=== PATIENT | male | born 1940 | race Caucasian/White ===

== ENCOUNTER 2017-11-29 19:22 | Inpatient (IN) | payer MEDICARE, OTHER ==
[~2017-11-29] VITALS: Ht 182.9 cm; Wt 104.7 kg
[2017-11-29 19:55] LABS: BASOPHILS # (AUTO) 0.1 X10'3 (0-0.2); EOSINOPHILS # (AUTO) 0.8 X10'3 (0-0.9); EOSINOPHILS % (AUTO) 9.9 % (0-6); HEMATOCRIT 36.4 % (42.0-52.0); HEMOGLOBIN 12.3 g/dl (14.0-17.9); LYMPHOCYTES # (AUTO) 1.8 X10'3 (1.1-4.8); LYMPHOCYTES % (AUTO) 21.9 % (21-51); MEAN CORPUSCULAR HEMOGLOBIN 29.2 PG (27.0-31.0); MEAN CORPUSCULAR HGB CONC 33.7 % (33.0-36.5); MEAN CORPUSCULAR VOLUME 86.8 FL (78-98); MEAN PLATELET VOLUME 9.7 FL (7.4-10.4); MONOCYTES # (AUTO) 0.6 X10'3 (0-0.9); MONOCYTES % (AUTO) 6.9 % (2-12); NEUTROPHILS % (AUTO) 60.3 % (42-75); PLATELET COUNT 249 X10'3 (140-440); RED BLOOD COUNT 4.19 X10'6 (4.70-6.10); WHITE BLOOD COUNT 8.3 X10'3 (4.5-11.0)
[2017-11-29 20:00] LABS: PARTIAL THROMBOPLASTIN TIME 27 SECONDS (22-32); PROTHROMBIN TIME 10.6 SECONDS (9.0-12.0)
[2017-11-29 20:15] LABS: ALANINE AMINOTRANSFERASE 31 U/L (12-78); ALBUMIN 3.6 G/DL (3.4-5.0); ALBUMIN/GLOBULIN RATIO 0.8 (1.1-1.5); ALKALINE PHOSPHATASE 84 IU/L (46-116); ANION GAP 9 (8-16); ASPARTATE AMINO TRANSFERASE 21 U/L (10-37); BILIRUBIN,TOTAL 0.5 MG/DL (0.1-1.0); BLOOD UREA NITROGEN 34 MG/DL (7-18); BUN/CREATININE RATIO 26.2 (5.4-32.0); CALCIUM 9.4 MG/DL (8.5-10.1); CHLORIDE 106 MMOL/L (99-107); GLUCOSE 141 MG/DL (70-104); POTASSIUM 4.8 MMOL/L (3.5-5.1); SODIUM 140 MMOL/L (135-145); TOTAL CARBON DIOXIDE 24.9 MMOL/L (24-32); TOTAL PROTEIN 8.1 G/DL (6.4-8.2); eGFR 54 ML/MIN
[2017-11-29] MEDS ORDERED: morphine 2 MG/ML inj. syringe IV ONE (20:40)
[2017-11-29] MEDS ORDERED: aspirin 325mg tablet PO ONE (21:25)
[2017-11-29] MEDS ORDERED: metoprolol tartrate 1mg/ml inj IV ONE (21:25)
[2017-11-29] MEDS ORDERED: hydrALAZINE 20mg/ml inj. IV ONE (21:45)
[2017-11-29] MEDS ORDERED: ondansetron/PF 4mg/2ml inj IV PRN (21:50)
[2017-11-29] MEDS ORDERED: magnesium hydroxide 30ml (MOM) UD suspension PO PRN (21:50)
[2017-11-29] MEDS ORDERED: mag hydrox/Alum hydrox/simeth 30ml oral suspension PO PRN (21:50)
[2017-11-29] MEDS: nitroGLYCERIN 0.4mg SUBLingual tab SL PRN (22:06)
[2017-11-29] MEDS ORDERED: PRED15SO EACHEYE (22:28)
[2017-11-29] MEDS ORDERED: BRIM5DRO EACHEYE (22:28)
[2017-11-29] MEDS ORDERED: ATOR80TA PO (22:28)
[2017-11-29] MEDS ORDERED: LISI-600 PO (22:28)
[2017-11-29] MEDS ORDERED: ASPI-1265 PO (22:28)
[2017-11-29] MEDS ORDERED: KETO5DRO39 EACHEYE (22:28)
[2017-11-29] MEDS ORDERED: METO-467 PO (22:30)
[2017-11-29 23:45] VITALS: BP 158/63
[2017-11-29] MEDS ORDERED: heparin 10,000 units/1 ML INJ IV ONE (23:50)
[2017-11-29] MEDS ORDERED: heparin 10,000 units/1 ML INJ IV PRN (23:50)
[2017-11-30] VITALS (19 sets, daily range): BP systolic 134–187; BP diastolic 43–99
[2017-11-30] MEDS ORDERED: heparin, porcine 5000 units/ml vial SQ SCH
[2017-11-30] MEDS: nitroGLYCERIN 0.4mg SUBLingual tab SL PRN (00:09)
[2017-11-30 02:17] LABS: BASOPHILS # (AUTO) 0.1 X10'3 (0-0.2); BASOPHILS % (AUTO) 0.6 % (0-1); EOSINOPHILS # (AUTO) 0.3 X10'3 (0-0.9); EOSINOPHILS % (AUTO) 3.5 % (0-6); HEMATOCRIT 33.4 % (42.0-52.0); HEMOGLOBIN 11.7 g/dl (14.0-17.9); LYMPHOCYTES # (AUTO) 1.6 X10'3 (1.1-4.8); LYMPHOCYTES % (AUTO) 16.1 % (21-51); MEAN CORPUSCULAR HEMOGLOBIN 29.6 PG (27.0-31.0); MEAN CORPUSCULAR VOLUME 84.5 FL (78-98); MEAN PLATELET VOLUME 9.8 FL (7.4-10.4); MONOCYTES # (AUTO) 0.5 X10'3 (0-0.9); MONOCYTES % (AUTO) 4.7 % (2-12); NEUTROPHILS # (AUTO) 7.3 X10'3 (1.8-7.7); NEUTROPHILS % (AUTO) 75.1 % (42-75); PLATELET COUNT 247 X10'3 (140-440); RED BLOOD COUNT 3.95 X10'6 (4.70-6.10); RED CELL DISTRIBUTION WIDTH 11.9 % (11.5-14.5); WHITE BLOOD COUNT 9.8 X10'3 (4.5-11.0)
[2017-11-30 02:32] LABS: ALANINE AMINOTRANSFERASE 25 U/L (12-78); ALBUMIN 3.1 G/DL (3.4-5.0); ALBUMIN/GLOBULIN RATIO 0.7 (1.1-1.5); ALKALINE PHOSPHATASE 82 IU/L (46-116); ANION GAP 7 (8-16); ASPARTATE AMINO TRANSFERASE 24 U/L (10-37); BILIRUBIN,TOTAL 0.5 MG/DL (0.1-1.0); BLOOD UREA NITROGEN 34 MG/DL (7-18); BUN/CREATININE RATIO 30.9 (5.4-32.0); CALCIUM 9.2 MG/DL (8.5-10.1); CHLORIDE 106 MMOL/L (99-107); GLUCOSE 117 MG/DL (70-104); POTASSIUM 4.5 MMOL/L (3.5-5.1); SODIUM 139 MMOL/L (135-145); TOTAL CARBON DIOXIDE 26.2 MMOL/L (24-32); TOTAL PROTEIN 7.3 G/DL (6.4-8.2); eGFR 65 ML/MIN
[2017-11-30] MEDS: metoprolol tartrate 25mg tablet PO SCH ×2 (07:13→20:00)
[2017-11-30 07:28] LABS: PROTHROMBIN TIME 10.7 SECONDS (9.0-12.0)
[2017-11-30] MEDS ORDERED: aspirin 325mg tablet, delayed-release (Ecotrin) PO SCH (08:00)
[2017-11-30] MEDS ORDERED: midazolam 2 mg/2 ml injection ONE (09:24)
[2017-11-30] MEDS ORDERED: nitroGLYCERIN-Tridil 50MG/D5W 250 ML IV ONE (09:25)
[2017-11-30] MEDS ORDERED: heparin 1,000unit/ml 10ml vial 10 ML ONE (09:25)
[2017-11-30] MEDS ORDERED: iohexol 350MG/ML 100ml bottle IV ONE ×2 (09:25→10:39)
[2017-11-30] MEDS ORDERED: iohexol 350 MG/ML 50ML vial IV ONE (09:25)
[2017-11-30] MEDS ORDERED: LIDOcaine 1%/PF (10mg/ml) 5ml vial ONE ×2 (09:25→10:11)
[2017-11-30] MEDS ORDERED: fentaNYL/PF 50MCG/1 ML 2ML syringe ONE (09:25)
[2017-11-30] MEDS ORDERED: verapamil 2.5 mg/ml inj IV ONE (10:18)
[2017-11-30] MEDS ORDERED: iohexol 350 MG/1 ML 200ml bottle ONE (11:08)
[2017-11-30 11:28] LABS: CHOL/HDL RATIO 2.6 (0.00-4.99); CHOLESTEROL 112 MG/DL (0-200); HDL CHOLESTEROL 43 MG/DL (35-60); LDL CHOLESTEROL 68 MG/DL (50-100); TRIGLYCERIDES 45 MG/DL (20-135)
[2017-11-30] MEDS ORDERED: ticagrelor 90mg tablet ONE (12:06)
[2017-11-30] MEDS ORDERED: aspirin 81mg tab.chew PO ONE (13:05)
[2017-11-30] MEDS ORDERED: ticagrelor 90mg tablet PO ONE (13:10)
[2017-11-30] MEDS ORDERED: proCHLORperazine 10 MG/2 ml inj IV PRN (13:10)
[2017-11-30] MEDS ORDERED: OXAZEpam 15mg capsule PO PRN (13:15)
[2017-11-30] MEDS ORDERED: cyclobenzaprine 10mg tablet PO PRN (13:15)
[2017-11-30] MEDS ORDERED: HYDROcodone/acetaminophen 10/325mg tab PO PRN (13:15)
[2017-11-30] MEDS ORDERED: acetaminophen 325mg tablet PO PRN (13:15)
[2017-11-30] MEDS ORDERED: normal saline 1000ml 1,000 ML IV ONE (13:20)
[2017-11-30] MEDS: HYDROcodone/acetaminophen 10/325mg tab PO PRN ×2 (15:21→19:11)
[2017-11-30] MEDS: docusate sod 100mg capsule PO SCH (20:00)
[2017-11-30] MEDS: magnesium hydroxide 30ml (MOM) UD suspension PO SCH (21:00)
[2017-11-30] MEDS ORDERED: non-formulary drug (Atorvastatin Calcium* (Lipitor*) 1 TABLET) PO SCH (21:00)
[2017-11-30] MEDS ORDERED: metoprolol tartrate 50mg tablet PO SCH (21:00)
[2017-11-30] MEDS: ticagrelor 90mg tablet PO SCH (21:24)
[2017-11-30] MEDS ORDERED: lisinopril 10 MG tablet PO ONE (22:05)
[2017-12-01] VITALS (23 sets, daily range): BP systolic 118–177; BP diastolic 41–77
[2017-12-01 06:13] LABS: BASOPHILS % (AUTO) 0 % (0-1); EOSINOPHILS # (AUTO) 0.2 X10'3 (0-0.9); EOSINOPHILS % (AUTO) 3.3 % (0-6); HEMATOCRIT 31.5 % (42.0-52.0); HEMOGLOBIN 10.7 g/dl (14.0-17.9); LYMPHOCYTES % (AUTO) 14.4 % (21-51); MEAN CORPUSCULAR HEMOGLOBIN 29.1 PG (27.0-31.0); MEAN CORPUSCULAR HGB CONC 34.1 % (33.0-36.5); MEAN CORPUSCULAR VOLUME 85.4 FL (78-98); MEAN PLATELET VOLUME 9.5 FL (7.4-10.4); MONOCYTES # (AUTO) 0.6 X10'3 (0-0.9); MONOCYTES % (AUTO) 8.3 % (2-12); NEUTROPHILS # (AUTO) 5.2 X10'3 (1.8-7.7); PLATELET COUNT 224 X10'3 (140-440); RED BLOOD COUNT 3.69 X10'6 (4.70-6.10)
[2017-12-01 06:43] LABS: ALANINE AMINOTRANSFERASE 28 U/L (12-78); ALBUMIN/GLOBULIN RATIO 0.8 (1.1-1.5); ALKALINE PHOSPHATASE 74 IU/L (46-116); ANION GAP 11 (8-16); ASPARTATE AMINO TRANSFERASE 30 U/L (10-37); BILIRUBIN,TOTAL 0.8 MG/DL (0.1-1.0); BLOOD UREA NITROGEN 28 MG/DL (7-18); CALCIUM 8.9 MG/DL (8.5-10.1); CHLORIDE 106 MMOL/L (99-107); GLUCOSE 111 MG/DL (70-104); POTASSIUM 4.1 MMOL/L (3.5-5.1); SODIUM 140 MMOL/L (135-145); TOTAL CARBON DIOXIDE 23.1 MMOL/L (24-32); TOTAL PROTEIN 6.9 G/DL (6.4-8.2); eGFR 73 ML/MIN
[2017-12-01] MEDS: acetaminophen 325mg tablet PO PRN ×3 (06:58→19:17)
[2017-12-01] MEDS: ticagrelor 90mg tablet PO SCH ×2 (07:34→19:17)
[2017-12-01] MEDS: aspirin 81mg tablet.DR PO SCH (07:35)
[2017-12-01] MEDS: atorvastatin 20mg tablet PO SCH (07:35)
[2017-12-01] MEDS: docusate sod 100mg capsule PO SCH ×2 (07:35→19:18)
[2017-12-01] MEDS: lisinopril 20mg tablet PO SCH (07:35)
[2017-12-01] MEDS: nitroGLYCERIN-Tridil 50MG/D5W 250 ML IV PRN (07:40)
[2017-12-01] MEDS ORDERED: aspirin 325mg tablet PO SCH (08:30)
[2017-12-01] MEDS: metoprolol tartrate 25mg tablet PO SCH ×2 (08:45→19:17)
[2017-12-01] MEDS: magnesium hydroxide 30ml (MOM) UD suspension PO SCH (20:01)
[2017-12-02] VITALS (19 sets, daily range): BP systolic 113–212; BP diastolic 37–79
[2017-12-02] MEDS: nitroGLYCERIN-Tridil 50MG/D5W 250 ML IV PRN (03:23)
[2017-12-02 06:10] LABS: BASOPHILS % (AUTO) 0.4 % (0-1); EOSINOPHILS # (AUTO) 0.5 X10'3 (0-0.9); EOSINOPHILS % (AUTO) 7.8 % (0-6); HEMATOCRIT 29.4 % (42.0-52.0); HEMOGLOBIN 10.1 g/dl (14.0-17.9); LYMPHOCYTES # (AUTO) 1.1 X10'3 (1.1-4.8); LYMPHOCYTES % (AUTO) 17.4 % (21-51); MEAN CORPUSCULAR HGB CONC 34.4 % (33.0-36.5); MEAN CORPUSCULAR VOLUME 84.3 FL (78-98); MEAN PLATELET VOLUME 9.4 FL (7.4-10.4); MONOCYTES # (AUTO) 0.6 X10'3 (0-0.9); MONOCYTES % (AUTO) 9.4 % (2-12); NEUTROPHILS # (AUTO) 4.3 X10'3 (1.8-7.7); PLATELET COUNT 210 X10'3 (140-440); RED BLOOD COUNT 3.48 X10'6 (4.70-6.10); RED CELL DISTRIBUTION WIDTH 12.9 % (11.5-14.5); WHITE BLOOD COUNT 6.6 X10'3 (4.5-11.0)
[2017-12-02 06:12] LABS: ALANINE AMINOTRANSFERASE 21 U/L (12-78); ALBUMIN 2.8 G/DL (3.4-5.0); ALBUMIN/GLOBULIN RATIO 0.7 (1.1-1.5); ALKALINE PHOSPHATASE 69 IU/L (46-116); ANION GAP 10 (8-16); ASPARTATE AMINO TRANSFERASE 24 U/L (10-37); BILIRUBIN,TOTAL 0.8 MG/DL (0.1-1.0); BLOOD UREA NITROGEN 22 MG/DL (7-18); CHLORIDE 108 MMOL/L (99-107); GLUCOSE 102 MG/DL (70-104); POTASSIUM 3.9 MMOL/L (3.5-5.1); SODIUM 142 MMOL/L (135-145); TOTAL CARBON DIOXIDE 24.5 MMOL/L (24-32); TOTAL PROTEIN 6.7 G/DL (6.4-8.2); eGFR 73 ML/MIN
[2017-12-02] MEDS: ticagrelor 90mg tablet PO SCH ×2 (08:10→19:55)
[2017-12-02] MEDS: atorvastatin 20mg tablet PO SCH (08:10)
[2017-12-02] MEDS: docusate sod 100mg capsule PO SCH ×2 (08:11→19:54)
[2017-12-02] MEDS: metoprolol tartrate 25mg tablet PO SCH ×2 (08:11→19:55)
[2017-12-02] MEDS: lisinopril 20mg tablet PO SCH (08:11)
[2017-12-02] MEDS: aspirin 81mg tablet.DR PO SCH (08:11)
[2017-12-02] MEDS ORDERED: nitroGLYCERIN 0.4mg SUBLingual tab SL PRN (16:05)
[2017-12-02] MEDS ORDERED: furosemide 40mg/4ml inj IV ONE (16:05)
[2017-12-02] MEDS ORDERED: furosemide 40mg/4ml inj ONE (16:20)
[2017-12-02] MEDS: magnesium hydroxide 30ml (MOM) UD suspension PO SCH (19:54)
[2017-12-03 03:00] VITALS: BP 137/49
[2017-12-03 05:45] LABS: BASOPHILS % (AUTO) 0.3 % (0-1); EOSINOPHILS # (AUTO) 0.9 X10'3 (0-0.9); EOSINOPHILS % (AUTO) 10.6 % (0-6); HEMATOCRIT 32.9 % (42.0-52.0); HEMOGLOBIN 11.4 g/dl (14.0-17.9); LYMPHOCYTES # (AUTO) 1.6 X10'3 (1.1-4.8); LYMPHOCYTES % (AUTO) 20.2 % (21-51); MEAN CORPUSCULAR HEMOGLOBIN 29.5 PG (27.0-31.0); MEAN CORPUSCULAR HGB CONC 34.5 % (33.0-36.5); MEAN CORPUSCULAR VOLUME 85.3 FL (78-98); MEAN PLATELET VOLUME 9.2 FL (7.4-10.4); MONOCYTES # (AUTO) 0.8 X10'3 (0-0.9); MONOCYTES % (AUTO) 9.5 % (2-12); NEUTROPHILS # (AUTO) 4.8 X10'3 (1.8-7.7); NEUTROPHILS % (AUTO) 59.4 % (42-75); PLATELET COUNT 227 X10'3 (140-440); RED BLOOD COUNT 3.85 X10'6 (4.70-6.10); RED CELL DISTRIBUTION WIDTH 12.9 % (11.5-14.5); WHITE BLOOD COUNT 8.1 X10'3 (4.5-11.0)
[2017-12-03 06:00] VITALS: BP 160/54
[2017-12-03 06:02] LABS: ALANINE AMINOTRANSFERASE 28 U/L (12-78); ALBUMIN 3.1 G/DL (3.4-5.0); ALBUMIN/GLOBULIN RATIO 0.7 (1.1-1.5); ALKALINE PHOSPHATASE 78 IU/L (46-116); ANION GAP 11 (8-16); ASPARTATE AMINO TRANSFERASE 28 U/L (10-37); BLOOD UREA NITROGEN 23 MG/DL (7-18); BUN/CREATININE RATIO 19.2 (5.4-32.0); CALCIUM 9.1 MG/DL (8.5-10.1); CHLORIDE 106 MMOL/L (99-107); GLUCOSE 95 MG/DL (70-104); POTASSIUM 3.8 MMOL/L (3.5-5.1); SODIUM 142 MMOL/L (135-145); TOTAL CARBON DIOXIDE 24.7 MMOL/L (24-32); TOTAL PROTEIN 7.3 G/DL (6.4-8.2); eGFR 59 ML/MIN
[2017-12-03] MEDS: metoprolol tartrate 25mg tablet PO SCH (07:07)
[2017-12-03] MEDS: atorvastatin 20mg tablet PO SCH (07:07)
[2017-12-03] MEDS: ticagrelor 90mg tablet PO SCH (07:07)
[2017-12-03] MEDS: aspirin 81mg tablet.DR PO SCH (07:08)
[2017-12-03] MEDS: lisinopril 20mg tablet PO SCH (07:08)
[2017-12-03] MEDS ORDERED: nitroGLYCERIN 0.4mg/hour patch TD SCH (08:00)
[2017-12-03] MEDS: docusate sod 100mg capsule PO SCH (08:00)
[2017-12-03] MEDS ORDERED: potassium Cl 20 mEq SR tablet PO SCH (08:00)
[2017-12-03 11:00] VITALS: BP 145/52
[2017-12-03] MEDS ORDERED: NIT10P TD (15:49)
[2017-12-03] MEDS ORDERED: TICA90TA PO (15:49)
[2017-12-03] MEDS ORDERED: LISI-600 PO (15:49)
[2017-12-03] MEDS ORDERED: NITR0.4T51 SL (15:49)
== END 2017-12-03 16:57 | disposition home or self-care (01) | DRG 246 ==
LOC: ER 19:23 → ED HOLD 21:50 → UNDOADMOB 22:59 → ED HOLD 22:59 → INTOOBSV 22:59 → OBSVTOIN 22:59 → ED HOLD 23:30 → PCU 3S 23:30 → ICU 2S 11-30 12:16 → PCU 3S 12-02 18:00
PROVIDERS: ADMIT Internal Medicine; ATTEND Internal Medicine
PROC: B2111ZZ Fluoroscopy of Multiple Coronary Arteries using Low Osmolar Contrast (ICD-10-PCS; principal; 2017-11-30)
PROC: 027034Z Dilation of Coronary Artery, One Artery with Drug-eluting Intraluminal Device, Percutaneous Approach (ICD-10-PCS; 2017-11-30)
PROC: B2151ZZ Fluoroscopy of Left Heart using Low Osmolar Contrast (ICD-10-PCS; 2017-11-30)
PROC: 4A023N7 Measurement of Cardiac Sampling and Pressure, Left Heart, Percutaneous Approach (ICD-10-PCS; 2017-11-30)
PROC: B2181ZZ Fluoroscopy of Left Internal Mammary Bypass Graft using Low Osmolar Contrast (ICD-10-PCS; 2017-11-30)
PROC: B3101ZZ Fluoroscopy of Thoracic Aorta using Low Osmolar Contrast (ICD-10-PCS; 2017-11-30)
PROC: B4101ZZ Fluoroscopy of Abdominal Aorta using Low Osmolar Contrast (ICD-10-PCS; 2017-11-30)
DX: I21.4 Non-ST elevation (NSTEMI) myocardial infarction (principal); L89.154 Pressure ulcer of sacral region, stage 4; N17.9 Acute kidney failure, unspecified; G82.20 Paraplegia, unspecified; I73.9 Peripheral vascular disease, unspecified; I25.10 Atherosclerotic heart disease of native coronary artery without angina pectoris; E78.00 Pure hypercholesterolemia, unspecified; K21.9 Gastro-esophageal reflux disease without esophagitis; E78.5 Hyperlipidemia, unspecified; I10 Essential (primary) hypertension; I25.2 Old myocardial infarction; Z93.3 Colostomy status; Z95.1 Presence of aortocoronary bypass graft; Z87.891 Personal history of nicotine dependence
CPT/HCPCS: 36140; 93306; 93459; 96374; 96375; 99285; C9600; 36415; 71045; 75630; 75716; 80053; 80061; 83880; 84484; 85025; 85347; 85610; 85730; 87070; 93005; 99152; 99153; A4421; A4620; A6212; A6213; A6257; A6449; C1725; C1769; C1874; G0378; J0360; J1644; J1940; J2001; J2250; J2270; J2405; J3010; J3490; J7030; Q9967

== ENCOUNTER 2017-12-19 05:49 | Day surgery (SDC) | payer MEDICARE, OTHER ==
[2017-12-18 10:59] LABS: BASOPHILS % (AUTO) 0.3 % (0-1); EOSINOPHILS # (AUTO) 0.7 X10'3 (0-0.9); EOSINOPHILS % (AUTO) 7.2 % (0-6); HEMATOCRIT 33.6 % (42.0-52.0); HEMOGLOBIN 11.4 g/dl (14.0-17.9); LYMPHOCYTES # (AUTO) 1.1 X10'3 (1.1-4.8); LYMPHOCYTES % (AUTO) 11.5 % (21-51); MEAN CORPUSCULAR HEMOGLOBIN 29.3 PG (27.0-31.0); MEAN CORPUSCULAR VOLUME 86.2 FL (78-98); MEAN PLATELET VOLUME 8.8 FL (7.4-10.4); MONOCYTES # (AUTO) 0.9 X10'3 (0-0.9); MONOCYTES % (AUTO) 8.8 % (2-12); NEUTROPHILS # (AUTO) 7.2 X10'3 (1.8-7.7); NEUTROPHILS % (AUTO) 72.2 % (42-75); PLATELET COUNT 284 X10'3 (140-440); RED BLOOD COUNT 3.91 X10'6 (4.70-6.10); RED CELL DISTRIBUTION WIDTH 13.2 % (11.5-14.5); WHITE BLOOD COUNT 9.9 X10'3 (4.5-11.0)
[2017-12-18 11:09] LABS: PARTIAL THROMBOPLASTIN TIME 29 SECONDS (22-32); PROTHROMBIN TIME 10.8 SECONDS (9.0-12.0)
[2017-12-18 11:12] LABS: ANION GAP 10 (8-16); BLOOD UREA NITROGEN 25 MG/DL (7-18); BUN/CREATININE RATIO 22.5 (5.4-32.0); CALCIUM 9.3 MG/DL (8.5-10.1); CHLORIDE 101 MMOL/L (99-107); CREATININE 1.11 MG/DL (0.60-1.10); GLUCOSE 116 MG/DL (70-104); POTASSIUM 4.7 MMOL/L (3.5-5.1); SODIUM 138 MMOL/L (135-145); TOTAL CARBON DIOXIDE 26.9 MMOL/L (24-32); eGFR 65 ML/MIN
[~2017-12-19] VITALS: Ht 182.9 cm; Wt 99.8 kg
[2017-12-19] VITALS (14 sets, daily range): BP systolic 143–167; BP diastolic 52–81
[~2017-12-19 05:49] MED LIST: ASPI-1265 PO; ATOR80TA PO; BRIM5DRO EACHEYE; KETO5DRO39 EACHEYE; LISI-600 PO; METO-467 PO; NIT10P TD; NITR0.4T51 SL; PRED15SO EACHEYE; TICA90TA PO
[2017-12-19] MEDS ORDERED: normal saline 1000ml 1,000 ML IV SCH (06:25)
[2017-12-19] MEDS ORDERED: diphenhydrAMINE 25mg capsule PO PRN (06:25)
[2017-12-19] MEDS ORDERED: LORazepam 0.5 MG tablet PO PRN (06:25)
[2017-12-19] MEDS ORDERED: OMEP40CA37 PO (06:43)
[2017-12-19] MEDS ORDERED: NIT10P TD (06:43)
[2017-12-19] MEDS ORDERED: LISI-600 PO (06:43)
[2017-12-19] MEDS ORDERED: TICA90TA PO (06:43)
[2017-12-19] MEDS ORDERED: RANI150T8 PO (06:43)
[2017-12-19] MEDS ORDERED: NITR0.4T51 SL (06:43)
[2017-12-19] MEDS ORDERED: METR500T4 PO (06:45)
[2017-12-19] MEDS ORDERED: LEVO500T2 PO (06:45)
[2017-12-19] MEDS ORDERED: LIDOcaine/PRILOcaine 5gm cream TP ONE ×2 (07:00→07:20)
[2017-12-19] MEDS ORDERED: midazolam 2 mg/2 ml injection ONE (07:21)
[2017-12-19] MEDS ORDERED: LIDOcaine 1%/PF (10mg/ml) 5ml vial ONE (07:21)
[2017-12-19] MEDS ORDERED: verapamil 2.5 mg/ml inj IV ONE (07:21)
[2017-12-19] MEDS ORDERED: fentaNYL/PF 50MCG/1 ML 2ML syringe ONE (07:21)
[2017-12-19] MEDS ORDERED: nitroGLYCERIN-Tridil 50MG/D5W 250 ML IV ONE (07:21)
[2017-12-19] MEDS ORDERED: heparin 1,000unit/ml 10ml vial 10 ML ONE (07:22)
[2017-12-19] MEDS ORDERED: iohexol 350 MG/ML 50ML vial IV ONE (07:22)
[2017-12-19] MEDS ORDERED: iohexol 350 MG/1 ML 200ml bottle ONE (07:22)
[2017-12-19] MEDS ORDERED: hydrALAZINE 20mg/ml inj. IV ONE (09:06)
[2017-12-19] MEDS ORDERED: acetaminophen 325mg tablet PO PRN (10:00)
[2017-12-19] MEDS ORDERED: HYDROcodone/acetaminophen 10/325mg tab PO ONE (12:20)
== END 2017-12-19 14:50 | disposition home or self-care (01) ==
LOC: SSTAY O 05:49
PROVIDERS: ATTEND Internal Medicine Cardiovascular Disease
DX: I25.118 Atherosclerotic heart disease of native coronary artery with other forms of angina pectoris (principal); E78.5 Hyperlipidemia, unspecified; G82.20 Paraplegia, unspecified; I10 Essential (primary) hypertension; I25.2 Old myocardial infarction; Z95.1 Presence of aortocoronary bypass graft; Z95.5 Presence of coronary angioplasty implant and graft; Z79.82 Long term (current) use of aspirin; Z86.74 Personal history of sudden cardiac arrest; Z87.891 Personal history of nicotine dependence; Z93.3 Colostomy status; Z79.899 Other long term (current) drug therapy
CPT/HCPCS: 36215; 36415; 80048; 85025; 85610; 85730; 93005; 99152; 99153; A6258; A6402; C1769; J0360; J1644; J2001; J2250; J3010; J3490; J7030; Q0163; Q9967; A4620

== ENCOUNTER 2018-09-03 07:17 | Inpatient (IN) | payer MEDICARE, OTHER ==
[~2018-09-03] VITALS: Ht 182.9 cm; Wt 109.0 kg
[~2018-09-03 07:17] MED LIST changes: +LEVO500T2 PO; +METR500T4 PO; +OMEP40CA37 PO; -PRED15SO EACHEYE; +PRED15SO23 EACHEYE; +RANI150T8 PO
[2018-09-03 07:40] LABS: BASOPHILS % (AUTO) 0.2 % (0-1); EOSINOPHILS # (AUTO) 0.7 X10'3 (0-0.9); EOSINOPHILS % (AUTO) 9.9 % (0-6); HEMATOCRIT 31.5 % (42.0-52.0); HEMOGLOBIN 10.4 g/dl (14.0-17.9); LYMPHOCYTES # (AUTO) 0.8 X10'3 (1.1-4.8); LYMPHOCYTES % (AUTO) 11.2 % (21-51); MEAN CORPUSCULAR HGB CONC 33.2 % (33.0-36.5); MEAN CORPUSCULAR VOLUME 87.3 FL (78-98); MEAN PLATELET VOLUME 8.9 FL (7.4-10.4); MONOCYTES # (AUTO) 0.5 X10'3 (0-0.9); MONOCYTES % (AUTO) 7.8 % (2-12); NEUTROPHILS # (AUTO) 4.9 X10'3 (1.8-7.7); NEUTROPHILS % (AUTO) 70.9 % (42-75); PLATELET COUNT 247 X10'3 (140-440); RED BLOOD COUNT 3.61 X10'6 (4.70-6.10); RED CELL DISTRIBUTION WIDTH 14.5 % (11.5-14.5)
[2018-09-03 07:58] LABS: INR 1.1 INR; PARTIAL THROMBOPLASTIN TIME 28 SECONDS (22-32); PROTHROMBIN TIME 10.7 SECONDS (9.0-12.0)
[2018-09-03 08:00] LABS: ALANINE AMINOTRANSFERASE 23 U/L (12-78); ALBUMIN 3.2 G/DL (3.4-5.0); ALBUMIN/GLOBULIN RATIO 0.8 (1.1-1.5); ALKALINE PHOSPHATASE 73 IU/L (46-116); ANION GAP 10 (8-16); ASPARTATE AMINO TRANSFERASE 22 U/L (10-37); BILIRUBIN,TOTAL 0.7 MG/DL (0.1-1.0); BLOOD UREA NITROGEN 21 MG/DL (7-18); BUN/CREATININE RATIO 18.4 (5.4-32.0); CALCIUM 9.1 MG/DL (8.5-10.1); CHLORIDE 105 MMOL/L (99-107); CREATININE 1.14 MG/DL (0.60-1.10); GLUCOSE 163 MG/DL (70-104); POTASSIUM 4.2 MMOL/L (3.5-5.1); SODIUM 137 MMOL/L (135-145); TOTAL CARBON DIOXIDE 22.4 MMOL/L (24-32); TOTAL PROTEIN 7.4 G/DL (6.4-8.2); eGFR 63 ML/MIN
[2018-09-03] MEDS ORDERED: aspirin 81mg tab.chew PO ONE (08:25)
[2018-09-03] MEDS ORDERED: nitroGLYCERIN 0.4mg/hour patch TD ONE (08:25)
[2018-09-03] MEDS ORDERED: mag hydrox/Alum hydrox/simeth 30ml oral suspension PO PRN (09:50)
[2018-09-03] MEDS ORDERED: acetaminophen 325mg tablet PO PRN (09:50)
[2018-09-03] MEDS ORDERED: potassium Cl 20 mEq SR tablet PO PRN ×2 (09:50)
[2018-09-03] MEDS ORDERED: morphine 2 MG/ML inj. syringe IV PRN ×2 (09:50)
[2018-09-03] MEDS ORDERED: HYDROcodone/acetaminophen 10/325mg tab PO PRN (09:50)
[2018-09-03] MEDS ORDERED: magnesium 1gm/100ml D5W IVPB 100 ML IV PRN (09:50)
[2018-09-03] MEDS ORDERED: magnesium Cl slow-release 64mg tablet PO PRN (09:50)
[2018-09-03] MEDS ORDERED: bisacodyl 10mg suppository rectal RC PRN (09:50)
[2018-09-03] MEDS ORDERED: magnesium hydroxide 30ml (MOM) UD suspension PO PRN (09:50)
[2018-09-03] MEDS ORDERED: HYDROcodone/acetaminophen 5mg/325mg tablet PO PRN (09:50)
[2018-09-03] MEDS ORDERED: potassium Cl 40MEQ/NS 500ml 500 ML IV PRN ×2 (09:50)
[2018-09-03] MEDS ORDERED: magnesium 4gm in 100ml NS 100 ML IV PRN (09:50)
[2018-09-03] MEDS ORDERED: ondansetron/PF 4mg/2ml inj IV PRN (09:50)
[2018-09-03] MEDS ORDERED: nitroGLYCERIN 0.4mg SUBLingual tab SL PRN (10:00)
[2018-09-03] MEDS: furosemide 20 MG/2 ML vial IV SCH ×2 (10:33→19:59)
[2018-09-03 11:00] VITALS: BP 154/58
[2018-09-03 15:00] VITALS: BP 148/54
[2018-09-03 19:00] VITALS: BP 155/45
[2018-09-03] MEDS: docusate sod 100mg capsule PO SCH (19:57)
[2018-09-03] MEDS: carVEDilol 3.125mg tablet PO SCH (20:00)
[2018-09-03] MEDS ORDERED: ticagrelor 90mg tablet PO SCH (20:00)
[2018-09-03 23:00] VITALS: BP 151/52
[2018-09-04 03:00] VITALS: BP 157/50
[2018-09-04 06:00] VITALS: BP 153/62
[2018-09-04] MEDS ORDERED: KETO1DRO3 OP (06:38)
[2018-09-04 06:39] LABS: BASOPHILS % (AUTO) 0.4 % (0-1); EOSINOPHILS # (AUTO) 0.6 X10'3 (0-0.9); EOSINOPHILS % (AUTO) 8.7 % (0-6); LYMPHOCYTES % (AUTO) 15.1 % (21-51); MEAN CORPUSCULAR HEMOGLOBIN 28.8 PG (27.0-31.0); MEAN CORPUSCULAR HGB CONC 33.3 % (33.0-36.5); MEAN CORPUSCULAR VOLUME 86.4 FL (78-98); MEAN PLATELET VOLUME 9.4 FL (7.4-10.4); MONOCYTES # (AUTO) 0.6 X10'3 (0-0.9); MONOCYTES % (AUTO) 9.1 % (2-12); NEUTROPHILS # (AUTO) 4.4 X10'3 (1.8-7.7); NEUTROPHILS % (AUTO) 66.7 % (42-75); PLATELET COUNT 227 X10'3 (140-440); RED BLOOD COUNT 3.47 X10'6 (4.70-6.10); RED CELL DISTRIBUTION WIDTH 14.1 % (11.5-14.5); WHITE BLOOD COUNT 6.6 X10'3 (4.5-11.0)
[2018-09-04 06:48] LABS: ALBUMIN 3.1 G/DL (3.4-5.0); ANION GAP 11 (8-16); BLOOD UREA NITROGEN 27 MG/DL (7-18); BUN/CREATININE RATIO 19.4 (5.4-32.0); CALCIUM 9.2 MG/DL (8.5-10.1); CHLORIDE 105 MMOL/L (99-107); CREATININE 1.39 MG/DL (0.60-1.10); GLUCOSE 106 MG/DL (70-104); MAGNESIUM 1.6 MG/DL (1.5-2.4); POTASSIUM 3.9 MMOL/L (3.5-5.1); SODIUM 139 MMOL/L (135-145); TOTAL CARBON DIOXIDE 23.4 MMOL/L (24-32); eGFR 50 ML/MIN
[2018-09-04] MEDS: prasugrel 10mg tablet PO SCH (07:35)
[2018-09-04] MEDS: enoxaparin 40mg/0.4ml syringe SUBCUT SCH (07:35)
[2018-09-04] MEDS: docusate sod 100mg capsule PO SCH ×3 (07:35→20:08)
[2018-09-04] MEDS: carVEDilol 3.125mg tablet PO SCH (07:35)
[2018-09-04] MEDS: furosemide 20 MG/2 ML vial IV SCH ×2 (07:35→20:08)
[2018-09-04] MEDS ORDERED: aspirin 81mg tablet.DR PO SCH (08:00)
[2018-09-04] MEDS: K and/or MAG REPLACEMENT MC SCH (08:00)
[2018-09-04] MEDS ORDERED: lisinopril 20mg tablet PO SCH (08:00)
[2018-09-04 11:00] VITALS: BP 179/59
[2018-09-04] MEDS: nystatin 15 GM powder TP SCH ×2 (13:31→20:09)
[2018-09-04] MEDS ORDERED: nitroGLYCERIN 0.4mg SUBLingual tab SL PRN (14:45)
[2018-09-04] MEDS: nitroGLYCERIN 0.4mg/hour patch TD SCH (14:50)
[2018-09-04 15:00] VITALS: BP 156/54
[2018-09-04 19:00] VITALS: BP 171/51
[2018-09-04] MEDS: lisinopril 10 MG tablet PO SCH (20:09)
[2018-09-04] MEDS: carVEDilol 12.5mg tablet PO SCH (20:10)
[2018-09-04] MEDS ORDERED: atorvastatin 20mg tablet PO SCH (21:00)
[2018-09-04] MEDS: ketorolac tromethamine 0.5% ophthalmic drops EACHEYE SCH (21:00)
[2018-09-04] MEDS: brimonidine 0.2% 5 ML ophthalmic drops EACHEYE SCH (21:00)
[2018-09-04] MEDS: prednisoLONE acetate 1% ophth susp 5ml EACHEYE SCH (21:00)
[2018-09-04] MEDS ORDERED: metoprolol tartrate 50mg tablet PO SCH (21:00)
[2018-09-04 23:00] VITALS: BP 141/58
[2018-09-05 03:00] VITALS: BP 146/54
[2018-09-05 04:59] LABS: ALBUMIN 3.2 G/DL (3.4-5.0); ANION GAP 11 (8-16); BLOOD UREA NITROGEN 35 MG/DL (7-18); BUN/CREATININE RATIO 21.9 (5.4-32.0); CALCIUM 9.2 MG/DL (8.5-10.1); CHLORIDE 104 MMOL/L (99-107); GLUCOSE 107 MG/DL (70-104); MAGNESIUM 1.5 MG/DL (1.5-2.4); SODIUM 140 MMOL/L (135-145); TOTAL CARBON DIOXIDE 25.5 MMOL/L (24-32); eGFR 42 ML/MIN
[2018-09-05 07:00] VITALS: BP 157/49
[2018-09-05] MEDS: prednisoLONE acetate 1% ophth susp 5ml EACHEYE SCH (08:00)
[2018-09-05] MEDS: nitroGLYCERIN 0.4mg/hour patch TD SCH (08:00)
[2018-09-05] MEDS: brimonidine 0.2% 5 ML ophthalmic drops EACHEYE SCH (08:00)
[2018-09-05] MEDS ORDERED: pantoprazole 40mg Tablet.DR PO SCH (08:00)
[2018-09-05] MEDS: docusate sod 100mg capsule PO SCH (08:00)
[2018-09-05] MEDS ORDERED: non-formulary drug (Ranitidine HCl 1 TAB) PO SCH (08:00)
[2018-09-05] MEDS: K and/or MAG REPLACEMENT MC SCH (08:00)
[2018-09-05] MEDS: nystatin 15 GM powder TP SCH (08:00)
[2018-09-05] MEDS: ketorolac tromethamine 0.5% ophthalmic drops EACHEYE SCH (08:00)
[2018-09-05] MEDS ORDERED: aspirin 81mg tab.chew PO SCH (08:00)
[2018-09-05] MEDS ORDERED: nitroGLYCERIN 0.4mg/hour patch TD SCH (08:00)
[2018-09-05] MEDS ORDERED: CARV-50 PO (10:13)
[2018-09-05] MEDS ORDERED: PRAS10TA6 PO (10:13)
[2018-09-05] MEDS: enoxaparin 40mg/0.4ml syringe SUBCUT SCH (10:15)
[2018-09-05] MEDS: lisinopril 10 MG tablet PO SCH (10:16)
[2018-09-05] MEDS: carVEDilol 12.5mg tablet PO SCH (10:16)
[2018-09-05] MEDS: prasugrel 10mg tablet PO SCH (10:17)
[2018-09-05 11:00] VITALS: BP 146/60
== END 2018-09-05 12:05 | disposition home or self-care (01) | DRG 291 ==
LOC: ER 07:17 → PCU 3S 08:38
PROVIDERS: ADMIT Internal Medicine; ATTEND Internal Medicine
DX: I11.0 Hypertensive heart disease with heart failure (principal); L89.154 Pressure ulcer of sacral region, stage 4; I50.31 Acute diastolic (congestive) heart failure; G82.20 Paraplegia, unspecified; E78.00 Pure hypercholesterolemia, unspecified; E78.5 Hyperlipidemia, unspecified; I25.10 Atherosclerotic heart disease of native coronary artery without angina pectoris; L40.9 Psoriasis, unspecified; I73.9 Peripheral vascular disease, unspecified; K21.9 Gastro-esophageal reflux disease without esophagitis; I34.0 Nonrheumatic mitral (valve) insufficiency; I25.2 Old myocardial infarction; Z93.3 Colostomy status; Z95.1 Presence of aortocoronary bypass graft; Z95.5 Presence of coronary angioplasty implant and graft; Z99.3 Dependence on wheelchair; Z79.899 Other long term (current) drug therapy; Z87.891 Personal history of nicotine dependence
CPT/HCPCS: 36415; 71045; 80048; 80053; 83735; 83880; 84484; 85025; 85610; 85730; 87070; 93005; 93306; 99285; G0378; J1650; J1940

== ENCOUNTER 2020-09-05 18:00 | Emergency (ER) | payer MEDICARE, OTHER ==
[~2020-09-05] VITALS: Ht 182.9 cm; Wt 113.6 kg
[~2020-09-05 18:00] MED LIST changes: +CARV-50 PO; +KETO1DRO3 OP; -KETO5DRO39 EACHEYE; -LEVO500T2 PO; -METO-467 PO; -METR500T4 PO; -NIT10P TD; +NITR1PAT68 TD; +OMEP40CA13 PO; -OMEP40CA37 PO; +PRAS10TA6 PO; -RANI150T8 PO; -TICA90TA PO
[2020-09-05 19:17] VITALS: BP 148/53
[2020-09-05] MEDS ORDERED: tranexamic acid 100mg/ml inj. TP ONE (19:25)
[2020-09-05] MEDS ORDERED: AMOX-115 PO (19:43)
== END 2020-09-05 20:50 | disposition home or self-care (01) ==
LOC: ER 18:01
DX: R04.0 Epistaxis (principal); I25.10 Atherosclerotic heart disease of native coronary artery without angina pectoris; E78.00 Pure hypercholesterolemia, unspecified; I10 Essential (primary) hypertension; I25.2 Old myocardial infarction; Z98.890 Other specified postprocedural states; Z72.89 Other problems related to lifestyle; Z79.2 Long term (current) use of antibiotics; Z79.899 Other long term (current) drug therapy; Z79.82 Long term (current) use of aspirin
CPT/HCPCS: 30901; 99284

== ENCOUNTER 2020-09-19 15:44 | Emergency (ER) | payer MEDICARE, OTHER ==
[~2020-09-19] VITALS: Ht 182.9 cm; Wt 113.6 kg
[2020-09-19] MEDS ORDERED: oxymetazoline 15 ML nasal spray NS ONE (18:15)
[2020-09-19] MEDS ORDERED: tranexamic acid 100mg/ml inj. TP ONE (18:20)
[2020-09-19] MEDS ORDERED: CEPH-572 PO (18:39)
[2020-09-19 18:41] VITALS: BP 151/69
--- NOTE | 2020-09-19 18:41 | NUR ---
Dr. Vidal at bedside, rhino rocket placed to R nare. Bleeding appears to be controlled at this time.
== END 2020-09-19 18:48 | disposition home or self-care (01) ==
LOC: ER 15:44
DX: R04.0 Epistaxis (principal); I25.10 Atherosclerotic heart disease of native coronary artery without angina pectoris; E78.00 Pure hypercholesterolemia, unspecified; I10 Essential (primary) hypertension; Z98.61 Coronary angioplasty status; Z95.1 Presence of aortocoronary bypass graft; Z79.82 Long term (current) use of aspirin; Z79.2 Long term (current) use of antibiotics; Z79.899 Other long term (current) drug therapy
CPT/HCPCS: 30905; 99284

== ENCOUNTER 2023-02-27 07:53 | Day surgery (SDC) | payer MEDICARE, OTHER ==
[~2023-02-27] VITALS: Ht 182.9 cm; Wt 108.9 kg
[2023-02-27] VITALS (15 sets, daily range): BP systolic 147–184; BP diastolic 59–89
[~2023-02-27 07:53] MED LIST changes: +KETO1DRO OP; -KETO1DRO3 OP; -LISI-600 PO; +LISI20TA28 PO; -OMEP40CA13 PO; +OMEP40CA21 PO; -PRED15SO23 EACHEYE; +PRED15SO71 EACHEYE
[2023-02-27] MEDS ORDERED: albumin 25% 100mL bottle x 1 IV PRN (08:15)
[2023-02-27] MEDS ORDERED: LISI40TA13 PO (08:27)
[2023-02-27] MEDS ORDERED: TRAV2.5D6 EACHEYE (08:27)
[2023-02-27] MEDS ORDERED: normal saline 1000ml 1,000 ML IV SCH (09:15)
[2023-02-27 09:43] LABS: BASOPHILS % (AUTO) 0.7 % (0-1); EOSINOPHILS % (AUTO) 14.7 % (0-6); HEMOGLOBIN 11.3 g/dl (14.0-17.9); LYMPHOCYTES # (AUTO) 1.2 X10'3 (1.1-4.8); MEAN CORPUSCULAR HEMOGLOBIN 28.7 PG (27.0-31.0); MEAN CORPUSCULAR HGB CONC 33.2 g/dL (33.0-36.5); MEAN CORPUSCULAR VOLUME 86.6 FL (78-98); MEAN PLATELET VOLUME 9.2 FL (7.4-10.4); MONOCYTES # (AUTO) 0.6 X10'3 (0-0.9); MONOCYTES % (AUTO) 8.4 % (2-12); NEUTROPHILS # (AUTO) 4.1 X10'3 (1.8-7.7); NEUTROPHILS % (AUTO) 59.2 % (42-75); PLATELET COUNT 209 X10'3 (140-440); RED BLOOD COUNT 3.92 X10'6 (4.70-6.10); WHITE BLOOD COUNT 6.9 X10'3 (4.5-11.0)
[2023-02-27] MEDS ORDERED: fentaNYL/PF 50MCG/1 ML 2ML syringe ONE (09:58)
[2023-02-27] MEDS ORDERED: midazolam 1 mg/ML 2ml injection ONE (09:58)
[2023-02-27] MEDS ORDERED: gelatin sponge, absorbable (Gelfoam 12-7MM) sponge TP ONE (10:33)
== END 2023-02-27 14:06 | disposition home or self-care (01) ==
LOC: SSTAY O 07:53
PROVIDERS: ATTEND Radiology Vascular & Interventional Radiology
DX: R91.1 Solitary pulmonary nodule (principal); G82.20 Paraplegia, unspecified; I25.10 Atherosclerotic heart disease of native coronary artery without angina pectoris; Z87.891 Personal history of nicotine dependence; Z95.1 Presence of aortocoronary bypass graft; Z95.5 Presence of coronary angioplasty implant and graft; Z72.89 Other problems related to lifestyle; Z88.2 Allergy status to sulfonamides; Z79.899 Other long term (current) drug therapy; Z79.82 Long term (current) use of aspirin
CPT/HCPCS: 32408; 36415; 71045; 85025; 85610; 99152; 99153; J2250; J3010; J7030; 77012; A4615

== ENCOUNTER 2023-04-20 14:34 | Inpatient (IN) | payer MEDICARE, OTHER ==
[~2023-04-20] VITALS: Ht 182.9 cm; Wt 109.1 kg
[~2023-04-20 14:34] MED LIST changes: -BRIM5DRO EACHEYE; -LISI20TA28 PO; +LISI40TA13 PO; -NITR0.4T51 SL; -NITR1PAT68 TD; +TRAV2.5D6 EACHEYE
[2023-04-20] MEDS ORDERED: CefTRIAXone 2gm/D5W 50ml BAG 50 ML IV ONE (14:45)
[2023-04-20 15:02] LABS: BASOPHILS # (AUTO) 0.1 X10'3 (0-0.2); BASOPHILS % (AUTO) 0.6 % (0-1); EOSINOPHILS # (AUTO) 0.6 X10'3 (0-0.9); EOSINOPHILS % (AUTO) 6.1 % (0-6); HEMATOCRIT 34.1 % (42.0-52.0); HEMOGLOBIN 11.4 g/dl (14.0-17.9); LYMPHOCYTES # (AUTO) 1.2 X10'3 (1.1-4.8); LYMPHOCYTES % (AUTO) 11.9 % (21-51); MEAN CORPUSCULAR HEMOGLOBIN 28.8 PG (27.0-31.0); MEAN CORPUSCULAR HGB CONC 33.3 g/dL (33.0-36.5); MEAN CORPUSCULAR VOLUME 86.5 FL (78-98); MEAN PLATELET VOLUME 9.5 FL (7.4-10.4); MONOCYTES # (AUTO) 0.6 X10'3 (0-0.9); MONOCYTES % (AUTO) 6.2 % (2-12); NEUTROPHILS # (AUTO) 7.6 X10'3 (1.8-7.7); NEUTROPHILS % (AUTO) 75.2 % (42-75); PLATELET COUNT 241 X10'3 (140-440); RED BLOOD COUNT 3.94 X10'6 (4.70-6.10); RED CELL DISTRIBUTION WIDTH 13.9 % (11.5-14.5); WHITE BLOOD COUNT 10.1 X10'3 (4.5-11.0)
[2023-04-20 15:15] LABS: APTT 29 SECONDS (22-32)
[2023-04-20 15:17] LABS: ALANINE AMINOTRANSFERASE 22 U/L (12-78); ALBUMIN 2.7 G/DL (3.4-5.0); ALBUMIN/GLOBULIN RATIO 0.6 (1.1-1.5); ALKALINE PHOSPHATASE 80 IU/L (46-116); ANION GAP 14 (8-16); ASPARTATE AMINO TRANSFERASE 20 U/L (10-37); BILIRUBIN,TOTAL 0.5 MG/DL (0.1-1.0); BLOOD UREA NITROGEN 52 MG/DL (7-18); BUN/CREATININE RATIO 30.2 (10.0-20.0); CALCIUM 8.8 MG/DL (8.5-10.1); CHLORIDE 106 MMOL/L (99-107); CREATININE 1.72 MG/DL (0.60-1.10); GLUCOSE 166 MG/DL (70-104); POTASSIUM 4.2 MMOL/L (3.5-5.1); SODIUM 139 MMOL/L (135-145); TOTAL CARBON DIOXIDE 19.1 MMOL/L (24-32); TOTAL PROTEIN 7.2 G/DL (6.4-8.2); eGFR 38 ML/MIN
[2023-04-20 15:23] LABS: MAGNESIUM 1.4 MG/DL (1.5-2.4)
[2023-04-20 15:24] LABS: C-REACTIVE PROTEIN 4.62 MG/DL (0.0-0.5)
[2023-04-20] MEDS ORDERED: magnesium 2GM in 50ml NS 50 ML IV ONE (15:30)
[2023-04-20] MEDS ORDERED: normal saline 1000ML IV soln IVB ONE (15:30)
[2023-04-20] MEDS ORDERED: normal saline 1000ml 1,000 ML IV ONE (15:30)
[2023-04-20 15:41] LABS: CLARITY,URINE CLOUDY (Clear); COLOR,URINE YELLOW (Yellow); GLUCOSE, URINE NEGATIVE (Neg); KETONES,URINE NEGATIVE (Neg); LEUKOCYTE ESTERASE ,URINE LARGE (Neg); NITRITES, URINE NEGATIVE (Neg); OCCULT BLOOD,URINE TRACE-INTACT (Neg); PROTEIN,URINE >=300 mg/dl (Neg); UROBILINOGEN,URINE 0.2 E.U/dL (0.2-1.0)
[2023-04-20 15:43] LABS: UA COLLECTION TYPE CONDOM CATH
[2023-04-20 15:53] LABS: SQUAMOUS EPITHELIAL CELL,UR MODERATE /LPF (FEW)
[2023-04-20 15:54] LABS: BACTERIA,URINE 4+ /HPF (Neg)
[2023-04-20 15:56] LABS: AMORPHOUS URATES 3+; WBC,URINE TNTC /HPF (0-4)
[2023-04-20 15:57] LABS: WBC CLUMPS,URINE MODERATE /HPF (NEGATIVE)
[2023-04-20 16:05] LABS: RBC,URINE 0-2 /HPF (0-2)
[2023-04-20] MEDS ORDERED: ondansetron/PF 4mg/2ml inj IV PRN (16:05)
[2023-04-20] MEDS ORDERED: acetaminophen 325mg tablet PO PRN ×2 (16:05)
[2023-04-20] MEDS ORDERED: HYDROcodone/acetaminophen 5mg/325mg tablet PO PRN (16:05)
[2023-04-20] MEDS ORDERED: magnesium hydroxide 30ml (MOM) UD suspension PO PRN (16:05)
[2023-04-20] MEDS ORDERED: dextrose 5%-1/2 normal saline 1,000 ML IV SCH (16:05)
[2023-04-20] MEDS ORDERED: morphine 2 MG/ML inj. syringe IV PRN ×2 (16:05)
[2023-04-20] MEDS ORDERED: mag hydrox/Alum hydrox/simeth 30ml oral suspension PO PRN (16:05)
--- NOTE | 2023-04-20 17:15 | NUR ---
REPORT ATTEMPTED, UNIT NOT ANSWERING PHONE AT THIS TIME
--- NOTE | 2023-04-20 17:55 | NUR ---
REPORT GIVEN TO AIDA LI GOING TO BED 0631
--- NOTE | 2023-04-20 18:00 | NUR ---
HOSPITALIST ANISA CALLED AND UPDATED PT REMAINS WITH ELEVATED BPS, RECONCILING MED LIST PT TO CONTINUE HOME BP MEDS
--- NOTE | 2023-04-20 18:01 | NUR ---
Patient in room ED 3. I have received report from Margarette RN in ER and had the opportunity to ask questions and assume patient care.
--- NOTE | 2023-04-20 18:29 | NUR ---
Problems reprioritized. Patient report given, questions answered & plan of care reviewed with Cindi KIMBROUGH.
--- NOTE | 2023-04-20 18:35 | NUR ---
Patient in room ORTHO 4008. I have received report from MITZI LI and had the opportunity to ask questions and assume patient care.
[2023-04-20 18:45] VITALS: BP 210/70
[2023-04-20] MEDS ORDERED: NITR0.4T51 SL (19:06)
[2023-04-20] MEDS ORDERED: MULT-1085 PO (19:06)
[2023-04-20] MEDS ORDERED: AMLO2.5T2 PO (19:06)
[2023-04-20] MEDS ORDERED: OMEG100037 PO (19:06)
[2023-04-20] MEDS: latanoprost 0.005% 2.5ml ophthalmic drops EACHEYE SCH (20:00)
[2023-04-20] MEDS: docusate sod 100mg capsule PO SCH (20:00)
[2023-04-20] MEDS ORDERED: nitroGLYCERIN 0.4mg SUBLingual tab SL PRN (20:05)
[2023-04-20] MEDS ORDERED: carVEDilol 12.5mg tablet PO ONE (20:05)
[2023-04-20] MEDS: amLODIPine 5mg tablet PO SCH (20:14)
[2023-04-20] MEDS: normal saline 1000ml 1,000 ML IV SCH (20:52)
[2023-04-20] MEDS: atorvastatin 20mg tablet PO SCH (21:00)
[2023-04-20] MEDS: KETOROLAC TROMETHAMINE OP SCH (21:00)
[2023-04-20 22:00] VITALS: BP 164/60
--- NOTE | 2023-04-20 22:35 | NUR ---
heard a loud snore from pt's room, then phone rang - tele notifying me of patient's drop in heart rate to 27 with multiple pauses. pt sleeping soundly on his side, obstructive sounds from throat noted. sats 92%.
--- NOTE | 2023-04-20 23:00 | NUR ---
pt difficulty to arouse. no verbal response for 15 minutes, pt continually trying to change position. after 15 min pt aroused and was able to state name, birthdate and 's name. noted bp 160/90 - Dr. Avila at bedside - did not want final BP med given. order to KVO IVF and monitor for sleep apnea with cont pulse ox. sats 93% RA
[2023-04-20] MEDS: lisinopril 20mg tablet PO SCH (23:25)
[2023-04-21 02:00] VITALS: BP 152/50
[2023-04-21 05:00] VITALS: BP 206/77
--- NOTE | 2023-04-21 05:00 | NUR ---
DR. MCNAIR INFORMED ABOUT THE HIGH BLOOD PRESSURE 206/77 HR 75 AND ORDERED TO GIVE NORVASC EARLY.
[2023-04-21] MEDS: amLODIPine 5mg tablet PO SCH ×2 (05:04→19:32)
--- NOTE | 2023-04-21 05:42 | NUR ---
assessments and documentation reviewed by myself from silvano Medrano.
[2023-04-21 06:15] VITALS: BP 177/68
[2023-04-21 06:21] LABS: BASOPHILS % (AUTO) 0.5 % (0-1); EOSINOPHILS # (AUTO) 0.3 X10'3 (0-0.9); EOSINOPHILS % (AUTO) 3.5 % (0-6); HEMATOCRIT 30.5 % (42.0-52.0); HEMOGLOBIN 10.1 g/dl (14.0-17.9); LYMPHOCYTES # (AUTO) 1.2 X10'3 (1.1-4.8); LYMPHOCYTES % (AUTO) 13.4 % (21-51); MEAN CORPUSCULAR HEMOGLOBIN 28.7 PG (27.0-31.0); MEAN CORPUSCULAR HGB CONC 33.2 g/dL (33.0-36.5); MEAN CORPUSCULAR VOLUME 86.5 FL (78-98); MEAN PLATELET VOLUME 9.5 FL (7.4-10.4); MONOCYTES # (AUTO) 0.8 X10'3 (0-0.9); MONOCYTES % (AUTO) 9.3 % (2-12); NEUTROPHILS # (AUTO) 6.7 X10'3 (1.8-7.7); NEUTROPHILS % (AUTO) 73.3 % (42-75); PLATELET COUNT 206 X10'3 (140-440); RED BLOOD COUNT 3.53 X10'6 (4.70-6.10); RED CELL DISTRIBUTION WIDTH 13.3 % (11.5-14.5); WHITE BLOOD COUNT 9.1 X10'3 (4.5-11.0)
--- NOTE | 2023-04-21 06:21 | NUR ---
Problems reprioritized. Patient report given, questions answered & plan of care reviewed with KAYLAN GUERRA.
[2023-04-21 06:34] LABS: ALBUMIN 2.4 G/DL (3.4-5.0); ANION GAP 11 (8-16); BLOOD UREA NITROGEN 42 MG/DL (7-18); BUN/CREATININE RATIO 28.4 (10.0-20.0); CALCIUM 8.9 MG/DL (8.5-10.1); CHLORIDE 109 MMOL/L (99-107); CREATININE 1.48 MG/DL (0.60-1.10); GLUCOSE 117 MG/DL (70-104); POTASSIUM 3.7 MMOL/L (3.5-5.1); SODIUM 141 MMOL/L (135-145); TOTAL CARBON DIOXIDE 20.7 MMOL/L (24-32); eGFR 46 ML/MIN
--- NOTE | 2023-04-21 07:12 | NUR ---
Pagejaved EEG per orders Addendum: 04/21/23 at 0721 by Nidia Cadena RN Per Amandeep with EEG she is on vacation until Monday so no EEG available until then
[2023-04-21] MEDS: lisinopril 20mg tablet PO SCH ×2 (07:36→19:33)
[2023-04-21] MEDS: pantoprazole 40mg Tablet.DR PO SCH (07:36)
[2023-04-21] MEDS: carVEDilol 12.5mg tablet PO SCH ×2 (07:36→19:14)
[2023-04-21] MEDS: OMEGA-3/DHA/EPA/FISH OIL 1 EACH CAPSULE.DR PO SCH (07:37)
[2023-04-21] MEDS: aspirin 81mg tab.chew PO SCH (07:37)
[2023-04-21] MEDS: enoxaparin 40mg/0.4ml syringe SUBCUT SCH (07:38)
[2023-04-21] MEDS: prasugrel 10mg tablet PO SCH (07:42)
[2023-04-21] MEDS: CefTRIAXone/D5W-Rocephin 1gm 50 ML IV SCH (07:44)
[2023-04-21] MEDS: normal saline 1000ml 1,000 ML IV SCH (07:51)
[2023-04-21] MEDS: KETOROLAC TROMETHAMINE OP SCH ×3 (08:00→19:34)
[2023-04-21] MEDS: latanoprost 0.005% 2.5ml ophthalmic drops EACHEYE SCH ×2 (08:00→19:34)
[2023-04-21] MEDS: docusate sod 100mg capsule PO SCH ×2 (08:00→19:41)
[2023-04-21 10:00] VITALS: BP 146/51
--- NOTE | 2023-04-21 10:44 | NUR ---
Received a call from Tele patients heart rate went to 47, Current vitals 137/59 HR 54 95% RA asymptomatic. Paged Dr Anaya awaiting response
--- NOTE | 2023-04-21 13:24 | NUR ---
Sent request to continue patients home medication Prednisolone eye drops TID to Dr Anaya
--- NOTE | 2023-04-21 13:58 | NUR ---
PAGER ID: [phone] MESSAGE: Nidia Griggs [phone] Re: reyes [phone] Can I restart patients Prednisolone TID eye drops
[2023-04-21] MEDS ORDERED: PRED5DRO23 EACHEYE (15:10)
[2023-04-21] MEDS: PREDNISOLONE ACETATE EACHEYE SCH ×2 (15:21→19:34)
[2023-04-21 18:00] VITALS: BP 168/59
--- NOTE | 2023-04-21 18:20 | NUR ---
Patient in room ORTHO 4008. I have received report from KAYLAN GUERRA and had the opportunity to ask questions and assume patient care.
--- NOTE | 2023-04-21 18:45 | NUR ---
Patient in room ORTHO 4008. I have received report from KAYLAN GUERRA and had the opportunity to ask questions and assume patient care.
--- NOTE | 2023-04-21 18:50 | NUR ---
Problems reprioritized. Patient report given, questions answered & plan of care reviewed with Sindi KIMBROUGH and Juliana KIMBROUGH.
[2023-04-21] MEDS: atorvastatin 20mg tablet PO SCH (21:35)
[2023-04-21] MEDS: nystatin 15 GM ointment TP SCH (21:36)
[2023-04-21 22:00] VITALS: BP 198/70
[2023-04-22 00:01] VITALS: BP 161/55
--- NOTE | 2023-04-22 06:24 | NUR ---
Problems reprioritized. Patient report given, questions answered & plan of care reviewed with KAYLAN Magallon.
[2023-04-22 06:30] VITALS: BP 182/56
--- NOTE | 2023-04-22 06:31 | NUR ---
Patient in room ORTHO 4008. I have received report from Tamika KIMBROUGH and had the opportunity to ask questions and assume patient care.
--- NOTE | 2023-04-22 06:36 | NUR ---
Patient in room ORTHO 4008. I have received report from Sindi KIMBROUGH and had the opportunity to ask questions and assume patient care.
[2023-04-22 06:41] LABS: BASOPHILS # (AUTO) 0.1 X10'3 (0-0.2); BASOPHILS % (AUTO) 0.9 % (0-1); EOSINOPHILS # (AUTO) 0.7 X10'3 (0-0.9); EOSINOPHILS % (AUTO) 9.1 % (0-6); HEMATOCRIT 30.1 % (42.0-52.0); HEMOGLOBIN 9.9 g/dl (14.0-17.9); LYMPHOCYTES # (AUTO) 1.1 X10'3 (1.1-4.8); LYMPHOCYTES % (AUTO) 14.1 % (21-51); MEAN CORPUSCULAR HEMOGLOBIN 28.6 PG (27.0-31.0); MEAN CORPUSCULAR VOLUME 86.7 FL (78-98); MEAN PLATELET VOLUME 9.5 FL (7.4-10.4); MONOCYTES # (AUTO) 0.7 X10'3 (0-0.9); NEUTROPHILS # (AUTO) 5.4 X10'3 (1.8-7.7); NEUTROPHILS % (AUTO) 66.9 % (42-75); PLATELET COUNT 212 X10'3 (140-440); RED BLOOD COUNT 3.47 X10'6 (4.70-6.10); RED CELL DISTRIBUTION WIDTH 13.5 % (11.5-14.5)
[2023-04-22 06:47] LABS: ALBUMIN 2.2 G/DL (3.4-5.0); ANION GAP 11 (8-16); BLOOD UREA NITROGEN 39 MG/DL (7-18); BUN/CREATININE RATIO 24.2 (10.0-20.0); CHLORIDE 108 MMOL/L (99-107); CREATININE 1.61 MG/DL (0.60-1.10); GLUCOSE 109 MG/DL (70-104); POTASSIUM 4.2 MMOL/L (3.5-5.1); SODIUM 140 MMOL/L (135-145); TOTAL CARBON DIOXIDE 20.9 MMOL/L (24-32); eGFR 41 ML/MIN
[2023-04-22 07:13] LABS: CALCIUM 8.9 MG/DL (8.5-10.1)
[2023-04-22] MEDS: latanoprost 0.005% 2.5ml ophthalmic drops EACHEYE SCH ×4 (08:00→20:03)
[2023-04-22] MEDS: docusate sod 100mg capsule PO SCH ×2 (08:00→20:00)
[2023-04-22] MEDS: PREDNISOLONE ACETATE EACHEYE SCH ×3 (08:04→19:57)
[2023-04-22] MEDS: KETOROLAC TROMETHAMINE OP SCH ×3 (08:05→20:03)
[2023-04-22] MEDS: OMEGA-3/DHA/EPA/FISH OIL 1 EACH CAPSULE.DR PO SCH (08:08)
[2023-04-22] MEDS: nystatin 15 GM ointment TP SCH ×3 (08:08→20:04)
[2023-04-22] MEDS: amLODIPine 5mg tablet PO SCH (08:09)
[2023-04-22] MEDS: aspirin 81mg tab.chew PO SCH (08:10)
[2023-04-22] MEDS: prasugrel 10mg tablet PO SCH (08:10)
[2023-04-22] MEDS: lisinopril 20mg tablet PO SCH ×2 (08:10→20:03)
[2023-04-22] MEDS: pantoprazole 40mg Tablet.DR PO SCH (08:10)
[2023-04-22] MEDS: CefTRIAXone/D5W-Rocephin 1gm 50 ML IV SCH (08:11)
[2023-04-22] MEDS: enoxaparin 40mg/0.4ml syringe SUBCUT SCH (08:14)
[2023-04-22] MEDS ORDERED: vancomycin/NS 1 GM ADD-VANTAGE 250 ML IV SCH (08:35)
[2023-04-22 10:01] VITALS: BP 113/41
--- NOTE | 2023-04-22 11:12 | NUR ---
PAGER ID: [phone] MESSAGE: Zhang Bishop [phone] re: [phone] Patient culture sensitivity will be available at earliest tomorrow 04/23, just letting you know. Thanks
--- NOTE | 2023-04-22 14:45 | NUR ---
Per RN patient's SO inquiring about heart healthy diet education. SO not at bedside and pt sleeping when RD present. Written heart healthy nutrition therapy education and RD contact information provided to bedside RN for patient's SO, though given geriatric age and no lipid panel since 2018 (WNL) pt would likely benefit from a regular diet. Will continue to follow. Addendum: 04/22/23 at [address] Amended: Links added.
[2023-04-22 16:07] LABS: HBSAG SCREEN Negative (Negative); HEP B CORE AB, TOT Negative (Negative)
[2023-04-22 18:00] VITALS: BP 169/55
[2023-04-22] MEDS ORDERED: normal saline 1000ml 1,000 ML IV SCH (18:10)
--- NOTE | 2023-04-22 18:15 | NUR ---
Patient in room ORTHO 4008. I have received report from MELQUIADESRN AND SONIARN and had the opportunity to ask questions and assume patient care.
--- NOTE | 2023-04-22 18:17 | NUR ---
Problems reprioritized. Patient report given, questions answered & plan of care reviewed with Sindi KIMBROUGH.
--- NOTE | 2023-04-22 18:29 | NUR ---
Problems reprioritized. Patient report given TO PREETHI KIMBROUGH, questions answered & plan of care reviewed with .
[2023-04-22] MEDS: atorvastatin 20mg tablet PO SCH (20:04)
[2023-04-22 22:00] VITALS: BP 195/65
[2023-04-22 22:50] VITALS: BP 168/55
[2023-04-23 04:25] LABS: BASOPHILS # (AUTO) 0.1 X10'3 (0-0.2); BASOPHILS % (AUTO) 0.7 % (0-1); EOSINOPHILS % (AUTO) 11.5 % (0-6); HEMATOCRIT 31.6 % (42.0-52.0); HEMOGLOBIN 10.3 g/dl (14.0-17.9); LYMPHOCYTES % (AUTO) 11.6 % (21-51); MEAN CORPUSCULAR HGB CONC 32.7 g/dL (33.0-36.5); MEAN CORPUSCULAR VOLUME 85.8 FL (78-98); MEAN PLATELET VOLUME 9.2 FL (7.4-10.4); MONOCYTES # (AUTO) 0.8 X10'3 (0-0.9); MONOCYTES % (AUTO) 9.2 % (2-12); NEUTROPHILS # (AUTO) 5.7 X10'3 (1.8-7.7); PLATELET COUNT 221 X10'3 (140-440); RED BLOOD COUNT 3.69 X10'6 (4.70-6.10); RED CELL DISTRIBUTION WIDTH 13.5 % (11.5-14.5); WHITE BLOOD COUNT 8.5 X10'3 (4.5-11.0)
[2023-04-23 04:51] LABS: ALBUMIN 2.3 G/DL (3.4-5.0); ANION GAP 14 (8-16); BLOOD UREA NITROGEN 31 MG/DL (7-18); BUN/CREATININE RATIO 21.2 (10.0-20.0); CALCIUM 9.1 MG/DL (8.5-10.1); CHLORIDE 111 MMOL/L (99-107); CREATININE 1.46 MG/DL (0.60-1.10); GLUCOSE 112 MG/DL (70-104); POTASSIUM 4.1 MMOL/L (3.5-5.1); SODIUM 144 MMOL/L (135-145); TOTAL CARBON DIOXIDE 19.5 MMOL/L (24-32); eGFR 46 ML/MIN
[2023-04-23 06:00] VITALS: BP 182/67
--- NOTE | 2023-04-23 06:23 | NUR ---
Problems reprioritized. Patient report given, questions answered & plan of care reviewed with KAYLAN Contreras.
[2023-04-23] MEDS: enoxaparin 40mg/0.4ml syringe SUBCUT SCH (07:03)
[2023-04-23] MEDS: pantoprazole 40mg Tablet.DR PO SCH (07:03)
[2023-04-23] MEDS: aspirin 81mg tab.chew PO SCH (07:03)
[2023-04-23] MEDS: lisinopril 20mg tablet PO SCH (07:04)
[2023-04-23] MEDS: prasugrel 10mg tablet PO SCH (07:04)
[2023-04-23] MEDS: docusate sod 100mg capsule PO SCH (07:05)
[2023-04-23] MEDS: OMEGA-3/DHA/EPA/FISH OIL 1 EACH CAPSULE.DR PO SCH (07:05)
[2023-04-23] MEDS: nystatin 15 GM ointment TP SCH (07:09)
[2023-04-23] MEDS: latanoprost 0.005% 2.5ml ophthalmic drops EACHEYE SCH (07:10)
[2023-04-23] MEDS: PREDNISOLONE ACETATE EACHEYE SCH (07:10)
[2023-04-23] MEDS: KETOROLAC TROMETHAMINE OP SCH (07:10)
[2023-04-23] MEDS: CefTRIAXone/D5W-Rocephin 1gm 50 ML IV SCH (07:12)
[2023-04-23] MEDS ORDERED: hyDRALAzine 10mg tablet PO SCH (08:00)
[2023-04-23] MEDS ORDERED: amLODIPine 5mg tablet PO SCH (08:00)
[2023-04-23] MEDS ORDERED: vancomycin/NS 1 GM ADD-VANTAGE 250 ML IV SCH (09:00)
[2023-04-23 10:00] VITALS: BP 156/51
[2023-04-23] MEDS ORDERED: LEVO-65 PO (10:52)
[2023-04-23] MEDS ORDERED: AMOX-580 PO (10:52)
[2023-04-23] MEDS ORDERED: AMLO2.5T2 PO (10:52)
[2023-04-23] MEDS ORDERED: hyDRALAzine tablet PO (10:52)
--- NOTE | 2023-04-23 12:10 | NUR ---
home medications sent home with patient as well
--- NOTE | 2023-04-23 12:29 | NUR ---
pt discharged in stable condition to home with . iv removed tip intact no complications. belongings sent with pt. pt educated on discharge instructions/follow up.
[2023-04-25] MEDS ORDERED: VANCOMYCIN LEVEL IV ONE (08:30)
== END 2023-04-23 12:12 | disposition home health service (06) | DRG 689 ==
LOC: ER 14:34 → ED HOLD 16:04 → ORTHO 4S 18:30
PROVIDERS: ADMIT Internal Medicine; ATTEND Internal Medicine
DX: N39.0 Urinary tract infection, site not specified (principal); G93.41 Metabolic encephalopathy; N17.9 Acute kidney failure, unspecified; G82.20 Paraplegia, unspecified; B96.20 Unspecified Escherichia coli [E. coli] as the cause of diseases classified elsewhere; E78.00 Pure hypercholesterolemia, unspecified; B95.2 Enterococcus as the cause of diseases classified elsewhere; N18.30 Chronic kidney disease, stage 3 unspecified; E83.42 Hypomagnesemia; D64.9 Anemia, unspecified; R00.1 Bradycardia, unspecified; I12.9 Hypertensive chronic kidney disease with stage 1 through stage 4 chronic kidney disease, or unspecified chronic kidney disease; I25.10 Atherosclerotic heart disease of native coronary artery without angina pectoris; Z79.82 Long term (current) use of aspirin; Z79.899 Other long term (current) drug therapy; Z82.49 Family history of ischemic heart disease and other diseases of the circulatory system; Z88.2 Allergy status to sulfonamides; Z93.3 Colostomy status; Z95.1 Presence of aortocoronary bypass graft; Z95.5 Presence of coronary angioplasty implant and graft; Z90.49 Acquired absence of other specified parts of digestive tract; I25.2 Old myocardial infarction; T44.7X5A Adverse effect of beta-adrenoreceptor antagonists, initial encounter; Y92.230 Patient room in hospital as the place of occurrence of the external cause
CPT/HCPCS: 36415; 70450; 71045; 80048; 80053; 81001; 82948; 83605; 83735; 83880; 84145; 84484; 85025; 85610; 85651; 85730; 86140; 86704; 86705; 86706; 87040; 87077; 87081; 87088; 87186; 87340; 93005; 99285; A6213; A6250; G0378; J0696; J1650; J3370; J3475; J7030

== ENCOUNTER 2024-11-20 14:24 | Inpatient (IN) | payer MEDICARE, OTHER ==
[~2024-11-20] VITALS: Ht 182.9 cm; Wt 109.1 kg
[~2024-11-20 14:24] MED LIST changes: +AMLO2.5T2 PO; +APIX2.5T PO; +ATOR-429 PO; -ATOR80TA PO; -CARV-50 PO; +EZET10TA6 PO; +METH1TAB32 PO; +MULT-1085 PO; +OMEG100037 PO; -PRED15SO71 EACHEYE; +PRED5DRO23 EACHEYE; +VITC500T PO
[2024-11-20 15:04] LABS: BASOPHILS % (AUTO) 0.5 % (0-1); EOSINOPHILS # (AUTO) 0.6 X10'3 (0-0.9); EOSINOPHILS % (AUTO) 7.8 % (0-6); HEMATOCRIT 27.7 % (42.0-52.0); HEMOGLOBIN 9.4 g/dl (14.0-17.9); LYMPHOCYTES # (AUTO) 1.2 X10'3 (1.1-4.8); LYMPHOCYTES % (AUTO) 14.3 % (21-51); MEAN CORPUSCULAR HEMOGLOBIN 30.5 PG (27.0-31.0); MEAN CORPUSCULAR HGB CONC 33.9 g/dL (33.0-36.5); MEAN CORPUSCULAR VOLUME 89.8 FL (78-98); MEAN PLATELET VOLUME 8.9 FL (7.4-10.4); MONOCYTES # (AUTO) 0.5 X10'3 (0-0.9); MONOCYTES % (AUTO) 6.2 % (2-12); NEUTROPHILS # (AUTO) 5.8 X10'3 (1.8-7.7); NEUTROPHILS % (AUTO) 71.2 % (42-75); PLATELET COUNT 239 X10'3 (140-440); RED BLOOD COUNT 3.08 X10'6 (4.70-6.10); RED CELL DISTRIBUTION WIDTH 14.1 % (11.5-14.5); WHITE BLOOD COUNT 8.2 X10'3 (4.5-11.0)
[2024-11-20 15:20] LABS: ALANINE AMINOTRANSFERASE 21 U/L (12-78); ALBUMIN 2.8 G/DL (3.4-5.0); ALBUMIN/GLOBULIN RATIO 0.8 (1.1-1.5); ALKALINE PHOSPHATASE 84 IU/L (46-116); ANION GAP 11 (8-16); ASPARTATE AMINO TRANSFERASE 18 U/L (10-37); BILIRUBIN,TOTAL 0.6 MG/DL (0.1-1.0); BLOOD UREA NITROGEN 45 MG/DL (7-18); BUN/CREATININE RATIO 25.7 (10.0-20.0); CALCIUM 9.4 MG/DL (8.5-10.1); CHLORIDE 109 MMOL/L (99-107); CREATININE 1.75 MG/DL (0.60-1.10); GLUCOSE 159 MG/DL (70-104); POTASSIUM 4.4 MMOL/L (3.5-5.1); SODIUM 140 MMOL/L (135-145); TOTAL CARBON DIOXIDE 20.3 MMOL/L (24-32); TOTAL PROTEIN 6.5 G/DL (6.4-8.2); eCRCL 36 ML/MIN; eGFR 38 ML/MIN
[2024-11-20 15:31] LABS: PRO BRAIN NATRIURETIC PEPTIDE 3891 PG/ML (0-450)
[2024-11-20] MEDS: nitroGLYCERIN 0.4mg/hour patch TD ONE (16:15)
[2024-11-20] MEDS: aspirin 81mg tab.chew PO ONE (16:15)
[2024-11-20] MEDS: hydrALAZINE 20mg/ml inj. IV ONE (16:16)
[2024-11-20] MEDS ORDERED: sodium bicarbonate (8.4%) 1 mEq/ml syringe IV ONE (16:50)
[2024-11-20] MEDS ORDERED: acetaminophen 325mg tablet PO PRN (16:50)
[2024-11-20] MEDS ORDERED: ondansetron/PF 4mg/2ml inj IV PRN (16:50)
[2024-11-20] MEDS ORDERED: potassium Cl 40MEQ/1/2NS 520ml 520 ML IV PRN (16:50)
[2024-11-20] MEDS ORDERED: magnesium sulf-water 4G/100mL 100 ML IV PRN (16:50)
[2024-11-20] MEDS ORDERED: potassium Cl 20 mEq SR tablet PO PRN ×2 (16:50)
[2024-11-20] MEDS ORDERED: mag hydrox/Alum hydrox/simeth 30ml oral suspension PO PRN (16:50)
[2024-11-20] MEDS ORDERED: normal saline 1000ml 1,000 ML IV SCH (16:50)
[2024-11-20] MEDS ORDERED: magnesium sulf-water 2g/50mL 50 ML IV PRN (16:50)
[2024-11-20] MEDS ORDERED: magnesium hydroxide 30ml (MOM) UD suspension PO PRN (16:50)
[2024-11-20] MEDS ORDERED: magnesium Cl slow-release 64mg tablet PO PRN (16:50)
[2024-11-20] MEDS ORDERED: heparin 10,000 units/1 ML INJ IV ONE (16:50)
[2024-11-20] MEDS ORDERED: heparin 25,000 UNIT/250ml bag 250 ML IV PRN (16:50)
[2024-11-20] MEDS ORDERED: CLON0.2T PO (17:11)
[2024-11-20] MEDS ORDERED: VITC500T PO (17:11)
[2024-11-20] MEDS ORDERED: PRAS10TA6 PO (17:11)
[2024-11-20] MEDS ORDERED: CARV-50 PO (17:11)
[2024-11-20] MEDS ORDERED: ISOS120T13 PO (17:11)
[2024-11-20] MEDS ORDERED: ASPI-611 PO (17:11)
[2024-11-20] MEDS ORDERED: D-MA500C PO (17:11)
[2024-11-20] MEDS ORDERED: HYDR25TA90 PO (17:11)
[2024-11-20] MEDS ORDERED: APIX2.5T PO (17:11)
[2024-11-20] MEDS ORDERED: AMLO2.5T2 PO (17:11)
[2024-11-20] MEDS ORDERED: LISI40TA13 PO (17:11)
[2024-11-20] MEDS: PERFLUTREN PROTEIN-A MICROSPHR (Optison) 0.22 MG/ML 3ML VIAL IV ONE (17:24)
[2024-11-20] MEDS ORDERED: heparin 10,000 units/1 ML INJ IV PRN (17:25)
[2024-11-20 17:27] LABS: INR 1.1 INR; PROTHROMBIN TIME 11.6 SECONDS (9.0-12.0)
[2024-11-20 17:29] LABS: APTT 31 SECONDS (22-32)
[2024-11-20] MEDS: SODIUM BICARBONATE 150MEQ IN D5W 1,150 ML IV SCH (18:00)
[2024-11-20] MEDS: labetalol 20mg/4ml (5mg/ml) syringe IV ONE (18:17)
[2024-11-20] MEDS: heparin 25,000 UNIT/250ml bag 250 ML IV PRN (18:58)
[2024-11-20] MEDS: heparin 10,000 units/1 ML INJ IV ONE (18:59)
[2024-11-20] MEDS: carVEDilol 12.5mg tablet PO SCH (20:00)
[2024-11-20] MEDS: docusate sod 100mg capsule PO SCH (20:00)
[2024-11-20] MEDS: MESSAGE TO NURSING IV ONE (20:40)
[2024-11-20] MEDS: K and/or MAG REPLACEMENT MC SCH (20:47)
[2024-11-20] MEDS: latanoprost 0.005% 2.5ml ophthalmic drops EACHEYE SCH (21:22)
[2024-11-20] MEDS: ketorolac tromethamine 0.5% ophthalmic drops EACHEYE SCH (21:23)
[2024-11-20] MEDS: atorvastatin 20mg tablet PO SCH (21:25)
[2024-11-20] MEDS: ascorbic acid 500mg tablet PO SCH (21:25)
[2024-11-20] MEDS: cloNIDine 0.1 mg tablet PO SCH (21:28)
[2024-11-20] MEDS: hydrALAZINE 25 MG tablet PO SCH (21:29)
[2024-11-20] MEDS: methenamine hippurate 1gm tablet PO SCH (21:48)
[2024-11-20] MEDS: acetylcysteine 200 MG/ml 4ml vial PO SCH (21:49)
[2024-11-20] MEDS: prednisoLONE acetate 1% ophth susp 5ml EACHEYE SCH (22:13)
[2024-11-20 23:00] VITALS: BP 158/53; PULSE 50; RESP 12; RESP 19; TEMP 98; O2SAT 96
[2024-11-21] VITALS (15 sets, daily range): BP systolic 81–159; BP diastolic 46–79; PULSE 50–67; RESP 12–20; TEMP 96.7–97.8; O2SAT 94–97
[2024-11-21] MEDS: nystatin 15 GM powder TP SCH
[2024-11-21] MEDS: MESSAGE TO NURSING IV ONE (02:00)
[2024-11-21 02:06] LABS: BASOPHILS # (AUTO) 0.1 X10'3 (0-0.2); EOSINOPHILS # (AUTO) 0.7 X10'3 (0-0.9); EOSINOPHILS % (AUTO) 8.9 % (0-6); HEMATOCRIT 27.3 % (42.0-52.0); HEMOGLOBIN 9.3 g/dl (14.0-17.9); LYMPHOCYTES # (AUTO) 1.3 X10'3 (1.1-4.8); LYMPHOCYTES % (AUTO) 17.5 % (21-51); MEAN CORPUSCULAR HEMOGLOBIN 30.4 PG (27.0-31.0); MEAN CORPUSCULAR HGB CONC 33.9 g/dL (33.0-36.5); MEAN CORPUSCULAR VOLUME 89.5 FL (78-98); MEAN PLATELET VOLUME 8.9 FL (7.4-10.4); MONOCYTES # (AUTO) 0.7 X10'3 (0-0.9); MONOCYTES % (AUTO) 8.7 % (2-12); NEUTROPHILS # (AUTO) 4.9 X10'3 (1.8-7.7); NEUTROPHILS % (AUTO) 63.9 % (42-75); PLATELET COUNT 230 X10'3 (140-440); RED BLOOD COUNT 3.05 X10'6 (4.70-6.10); RED CELL DISTRIBUTION WIDTH 14.4 % (11.5-14.5); WHITE BLOOD COUNT 7.6 X10'3 (4.5-11.0)
[2024-11-21 02:19] LABS: ALANINE AMINOTRANSFERASE 19 U/L (12-78); ALBUMIN 2.6 G/DL (3.4-5.0); ALBUMIN/GLOBULIN RATIO 0.7 (1.1-1.5); ALKALINE PHOSPHATASE 82 IU/L (46-116); ANION GAP 9 (8-16); ASPARTATE AMINO TRANSFERASE 24 U/L (10-37); BILIRUBIN,TOTAL 0.6 MG/DL (0.1-1.0); BLOOD UREA NITROGEN 45 MG/DL (7-18); BUN/CREATININE RATIO 28.5 (10.0-20.0); CALCIUM 9.2 MG/DL (8.5-10.1); CHLORIDE 110 MMOL/L (99-107); CHOL/HDL RATIO 2.2 (0.00-4.99); CHOLESTEROL 95 MG/DL (0-200); CREATININE 1.58 MG/DL (0.60-1.10); GLUCOSE 116 MG/DL (70-104); HDL CHOLESTEROL 44 MG/DL (35-60); LDL CHOLESTEROL 48 MG/DL (50-100); MAGNESIUM 2.1 MG/DL (1.5-2.4); POTASSIUM 4.3 MMOL/L (3.5-5.1); SODIUM 141 MMOL/L (135-145); TOTAL CARBON DIOXIDE 21.7 MMOL/L (24-32); TOTAL PROTEIN 6.6 G/DL (6.4-8.2); TRIGLYCERIDES 87 MG/DL (20-135); eCRCL 40 ML/MIN; eGFR 42 ML/MIN
[2024-11-21] MEDS: hydrALAZINE 20mg/ml inj. IV ONE ×2 (03:22→23:55)
[2024-11-21] MEDS ORDERED: fentaNYL/PF 50MCG/1 ML 2ML syringe ONE (07:29)
[2024-11-21] MEDS ORDERED: iohexol 350MG/ML 100ml bottle IV ONE ×3 (07:29→09:22)
[2024-11-21] MEDS ORDERED: midazolam 1 mg/ML 2ml injection ONE (07:29)
[2024-11-21] MEDS ORDERED: LIDOcaine 1% (10mg/ml) 2ml vial ONE (07:29)
[2024-11-21] MEDS ORDERED: verapamil 2.5 mg/ml inj IV ONE (07:29)
[2024-11-21] MEDS ORDERED: heparin 1,000unit/ml 10ml vial 10 ML ONE (07:29)
[2024-11-21] MEDS ORDERED: iohexol 350 MG/ML 50ML vial IV ONE (07:29)
[2024-11-21] MEDS ORDERED: nitroGLYCERIN 500mcg/5mL D5W 5 ML IV ONE ×2 (07:30→09:15)
[2024-11-21] MEDS: isosorbide mononitrate 30mg tab.SR.24H PO SCH (08:00)
[2024-11-21] MEDS: lisinopril 20mg tablet PO SCH (08:00)
[2024-11-21] MEDS ORDERED: D MANNOSE 500 MG PO SCH (08:00)
[2024-11-21] MEDS: prasugrel 10mg tablet PO SCH (08:00)
[2024-11-21] MEDS: amLODIPine 5mg tablet PO SCH (08:00)
[2024-11-21] MEDS ORDERED: atropine 0.1mg/ml 10ml syringe ONE ×2 (08:44→09:19)
[2024-11-21] MEDS ORDERED: nitroGLYCERIN 0.4mg SUBLingual tab SL ONE (09:00)
[2024-11-21] MEDS ORDERED: heparin 1,000 UNITS/NS 500ml 500 ML ONE (09:26)
[2024-11-21] MEDS ORDERED: clopidogrel 300mg tablet ONE (09:34)
[2024-11-21] MEDS ORDERED: aspirin 325mg tablet ONE (09:48)
[2024-11-21] MEDS: clopidogrel 300mg tablet PO ONE (10:40)
[2024-11-21] MEDS: multivitamins, therapeutics tablet PO SCH (11:59)
[2024-11-21] MEDS: OMEGA-3/DHA/EPA/FISH OIL 1 EACH CAPSULE.DR PO SCH (12:01)
[2024-11-21] MEDS: ezetimibe 10mg tablet PO SCH (12:02)
[2024-11-21] MEDS: pantoprazole 40mg Tablet.DR PO SCH (15:32)
[2024-11-21] MEDS: furosemide 20 MG/2 ML vial IV ONE (18:04)
[2024-11-21] MEDS: temazepam 15mg capsule PO PRN (20:24)
[2024-11-21] MEDS: ticagrelor 90mg tablet PO SCH (23:54)
[2024-11-22] VITALS (17 sets, daily range): BP systolic 130–180; BP diastolic 51–87; PULSE 51–68; RESP 16–28; TEMP 96.8–98.5; O2SAT 95–98
[2024-11-22] MEDS: furosemide 10 MG/1 ML 10ml inj IV ONE (04:16)
[2024-11-22 05:19] LABS: ABG BASE EXCESS -0.8 mmol/L (-2.0-3.0); ABG HCO3 24.9 mmol/L (21.0-28.0); ABG OXYGEN SATURATION 97.6 % (94.0-98.0); ABG PCO2 (T) 45.2 mmHg (35.0-48.0); ABG PH (T) 7.358 (7.350-7.450); ALLEN'S TEST POSITIVE; FCOHb 0.3 % (0.5-1.5); FHHb 2.4 % (0.0-5.0); FMetHb 0.3 % (0.0-1.5); MODE NASAL CANNULA; PATIENT TEMPERATURE 36.9; TOTAL HEMOGLOBIN 10.6 G/dl (13.5-17.5)
[2024-11-22] MEDS: albuterol 2.5 MG/3 ML nebule NEB PRN ×2 (05:31→20:44)
[2024-11-22] MEDS: hydrALAZINE 20mg/ml inj. IV ONE (05:42)
[2024-11-22 06:53] LABS: BASOPHILS # (AUTO) 0.1 X10'3 (0-0.2); BASOPHILS % (AUTO) 0.4 % (0-1); EOSINOPHILS # (AUTO) 0.3 X10'3 (0-0.9); EOSINOPHILS % (AUTO) 2.3 % (0-6); HEMATOCRIT 28.5 % (42.0-52.0); HEMOGLOBIN 9.6 g/dl (14.0-17.9); LYMPHOCYTES # (AUTO) 0.6 X10'3 (1.1-4.8); LYMPHOCYTES % (AUTO) 5.6 % (21-51); MEAN CORPUSCULAR HEMOGLOBIN 29.8 PG (27.0-31.0); MEAN CORPUSCULAR HGB CONC 33.7 g/dL (33.0-36.5); MEAN CORPUSCULAR VOLUME 88.4 FL (78-98); MEAN PLATELET VOLUME 8.6 FL (7.4-10.4); MONOCYTES # (AUTO) 0.6 X10'3 (0-0.9); MONOCYTES % (AUTO) 5.2 % (2-12); NEUTROPHILS % (AUTO) 86.5 % (42-75); PLATELET COUNT 263 X10'3 (140-440); RED BLOOD COUNT 3.22 X10'6 (4.70-6.10); RED CELL DISTRIBUTION WIDTH 14.2 % (11.5-14.5); WHITE BLOOD COUNT 11.5 X10'3 (4.5-11.0)
[2024-11-22 07:07] LABS: ALANINE AMINOTRANSFERASE 23 U/L (12-78); ALBUMIN 2.9 G/DL (3.4-5.0); ALBUMIN/GLOBULIN RATIO 0.7 (1.1-1.5); ALKALINE PHOSPHATASE 89 IU/L (46-116); ANION GAP 11 (8-16); ASPARTATE AMINO TRANSFERASE 50 U/L (10-37); BILIRUBIN,TOTAL 1.1 MG/DL (0.1-1.0); BLOOD UREA NITROGEN 34 MG/DL (7-18); BUN/CREATININE RATIO 25.8 (10.0-20.0); CALCIUM 9.6 MG/DL (8.5-10.1); CHLORIDE 102 MMOL/L (99-107); CREATININE 1.32 MG/DL (0.60-1.10); GLUCOSE 143 MG/DL (70-104); POTASSIUM 3.8 MMOL/L (3.5-5.1); SODIUM 139 MMOL/L (135-145); TOTAL CARBON DIOXIDE 25.6 MMOL/L (24-32); TOTAL PROTEIN 7.3 G/DL (6.4-8.2); eCRCL 47 ML/MIN; eGFR 52 ML/MIN
[2024-11-22] MEDS: aspirin 81mg, enteric-coated 1 TAB TABLET.DR PO SCH (07:52)
[2024-11-22] MEDS ORDERED: clopidogrel 75mg tablet PO SCH (08:00)
[2024-11-22] MEDS: acetylcysteine 200 MG/ml 4ml vial INH SCH (08:41)
[2024-11-22] MEDS: lactose-reduced food (Ensure Enlive) - 237ml bottle PO SCH (18:00)
[2024-11-22] MEDS: carvedilol 6.25mg tablet PO SCH (20:00)
[2024-11-22] MEDS: furosemide 40mg/4ml inj IV SCH (20:15)
[2024-11-22] MEDS: prasugrel 10mg tablet PO ONE (20:28)
[2024-11-22 21:50] LABS: PRO BRAIN NATRIURETIC PEPTIDE 6652 PG/ML (0-450)
[2024-11-23 02:00] VITALS: BP 112/43; PULSE 55; RESP 21; TEMP 96.9; O2SAT 99
[2024-11-23 06:00] VITALS: BP 177/51; PULSE 55; RESP 18; TEMP 97.4; O2SAT 92
[2024-11-23 06:41] LABS: BASOPHILS % (AUTO) 0.4 % (0-1); EOSINOPHILS # (AUTO) 0.5 X10'3 (0-0.9); HEMOGLOBIN 9.2 g/dl (14.0-17.9); LYMPHOCYTES # (AUTO) 0.9 X10'3 (1.1-4.8); LYMPHOCYTES % (AUTO) 11.8 % (21-51); MEAN CORPUSCULAR HEMOGLOBIN 30.1 PG (27.0-31.0); MEAN CORPUSCULAR VOLUME 88.3 FL (78-98); MEAN PLATELET VOLUME 8.6 FL (7.4-10.4); MONOCYTES # (AUTO) 0.6 X10'3 (0-0.9); NEUTROPHILS # (AUTO) 5.6 X10'3 (1.8-7.7); NEUTROPHILS % (AUTO) 72.8 % (42-75); PLATELET COUNT 262 X10'3 (140-440); RED BLOOD COUNT 3.06 X10'6 (4.70-6.10); RED CELL DISTRIBUTION WIDTH 14.1 % (11.5-14.5); WHITE BLOOD COUNT 7.7 X10'3 (4.5-11.0)
[2024-11-23 07:36] VITALS: PULSE 55; RESP 18; O2SAT 96
[2024-11-23 07:38] LABS: ALANINE AMINOTRANSFERASE 21 U/L (12-78); ALBUMIN 2.6 G/DL (3.4-5.0); ALBUMIN/GLOBULIN RATIO 0.7 (1.1-1.5); ALKALINE PHOSPHATASE 81 IU/L (46-116); ANION GAP 7 (8-16); ASPARTATE AMINO TRANSFERASE 25 U/L (10-37); BLOOD UREA NITROGEN 39 MG/DL (7-18); BUN/CREATININE RATIO 24.4 (10.0-20.0); CALCIUM 9.2 MG/DL (8.5-10.1); CHLORIDE 101 MMOL/L (99-107); GLUCOSE 148 MG/DL (70-104); MAGNESIUM 1.5 MG/DL (1.5-2.4); POTASSIUM 3.5 MMOL/L (3.5-5.1); SODIUM 137 MMOL/L (135-145); TOTAL CARBON DIOXIDE 28.7 MMOL/L (24-32); TOTAL PROTEIN 6.6 G/DL (6.4-8.2); eCRCL 39 ML/MIN; eGFR 42 ML/MIN
[2024-11-23] MEDS: prasugrel 10mg tablet PO SCH (07:41)
[2024-11-23 08:00] VITALS: PULSE 55; RESP 18; O2SAT 95
[2024-11-23] MEDS ORDERED: clopidogrel 75mg tablet PO SCH (08:00)
[2024-11-23] MEDS ORDERED: FURO40TA4 PO (09:26)
[2024-11-23] MEDS ORDERED: CARV6.253 PO (10:08)
[2024-11-23 11:00] VITALS: BP 126/37; PULSE 53; RESP 22; TEMP 97.5; O2SAT 95
[2024-11-23] MEDS ORDERED: FERR324T4 PO (12:30)
[2024-11-24] MEDS ORDERED: FERR-29 PO (22:13)
== END 2024-11-23 13:56 | disposition home or self-care (01) | DRG 321 ==
LOC: ER 14:25 → ED HOLD 16:54 → PCU 3S 23:45
PROVIDERS: ADMIT Internal Medicine; ATTEND Internal Medicine
PROC: B2111ZZ Fluoroscopy of Multiple Coronary Arteries using Low Osmolar Contrast (ICD-10-PCS; principal; 2024-11-21)
PROC: 0270346 Dilation of Coronary Artery, One Artery, Bifurcation, with Drug-eluting Intraluminal Device, Percutaneous Approach (ICD-10-PCS; 2024-11-21)
PROC: 4A023N7 Measurement of Cardiac Sampling and Pressure, Left Heart, Percutaneous Approach (ICD-10-PCS; 2024-11-21)
PROC: B2151ZZ Fluoroscopy of Left Heart using Low Osmolar Contrast (ICD-10-PCS; 2024-11-21)
PROC: B2141ZZ Fluoroscopy of Right Heart using Low Osmolar Contrast (ICD-10-PCS; 2024-11-21)
DX: I21.4 Non-ST elevation (NSTEMI) myocardial infarction (principal); I50.33 Acute on chronic diastolic (congestive) heart failure; G82.20 Paraplegia, unspecified; I13.0 Hypertensive heart and chronic kidney disease with heart failure and stage 1 through stage 4 chronic kidney disease, or unspecified chronic kidney disease; I16.1 Hypertensive emergency; E87.20 Acidosis, unspecified; I73.9 Peripheral vascular disease, unspecified; E78.5 Hyperlipidemia, unspecified; I48.0 Paroxysmal atrial fibrillation; K21.9 Gastro-esophageal reflux disease without esophagitis; D64.9 Anemia, unspecified; L40.9 Psoriasis, unspecified; N18.9 Chronic kidney disease, unspecified; Z90.49 Acquired absence of other specified parts of digestive tract; Z95.1 Presence of aortocoronary bypass graft; Z99.3 Dependence on wheelchair; Z82.3 Family history of stroke; Z88.2 Allergy status to sulfonamides; Z93.3 Colostomy status
CPT/HCPCS: 93306; 93459; 99291; C9600; 36415; 36600; 71045; 76937; 80053; 80061; 82803; 83735; 83880; 84484; 85018; 85025; 85347; 85610; 85730; 87081; 93005; 93975; 94640; 94664; 94668; 94760; 97161; 97530; 99152; 99153; A4358; A4615; A6209; A6212; A6213; A6222; A6223; A6250; A6253; A6258; A6402; A6449; A6590; C1725; C1751; C1769; C1874; C1887; C1894; G0378; J0360; J0461; J1644; J1940; J2003; J2250; J3010; J3490; Q9967

== ENCOUNTER 2024-11-24 19:36 | Inpatient (IN) | payer MEDICARE, OTHER ==
[~2024-11-24] VITALS: Ht 182.9 cm; Wt 126.5 kg
[~2024-11-24 19:36] MED LIST changes: -ASPI-1265 PO; +ASPI-611 PO; +CARV6.253 PO; +CLON0.2T PO; +D-MA500C PO; +FERR324T4 PO; +FURO40TA4 PO; +HYDR25TA90 PO; +ISOS120T13 PO
[2024-11-24 20:41] LABS: BASOPHILS % (AUTO) 0.6 % (0-1); EOSINOPHILS # (AUTO) 0.5 X10'3 (0-0.9); EOSINOPHILS % (AUTO) 6.1 % (0-6); HEMATOCRIT 25.3 % (42.0-52.0); HEMOGLOBIN 8.5 g/dl (14.0-17.9); LYMPHOCYTES # (AUTO) 0.9 X10'3 (1.1-4.8); LYMPHOCYTES % (AUTO) 11.8 % (21-51); MEAN CORPUSCULAR HEMOGLOBIN 29.7 PG (27.0-31.0); MEAN CORPUSCULAR HGB CONC 33.4 g/dL (33.0-36.5); MEAN PLATELET VOLUME 8.5 FL (7.4-10.4); MONOCYTES # (AUTO) 0.8 X10'3 (0-0.9); MONOCYTES % (AUTO) 10.3 % (2-12); NEUTROPHILS # (AUTO) 5.4 X10'3 (1.8-7.7); NEUTROPHILS % (AUTO) 71.2 % (42-75); PLATELET COUNT 268 X10'3 (140-440); RED BLOOD COUNT 2.85 X10'6 (4.70-6.10); RED CELL DISTRIBUTION WIDTH 14.4 % (11.5-14.5); WHITE BLOOD COUNT 7.5 X10'3 (4.5-11.0)
[2024-11-24 20:51] LABS: APTT 30 SECONDS (22-32); INR 1.2 INR
[2024-11-24 21:00] LABS: ALANINE AMINOTRANSFERASE 31 U/L (12-78); ALBUMIN 2.6 G/DL (3.4-5.0); ALBUMIN/GLOBULIN RATIO 0.7 (1.1-1.5); ALKALINE PHOSPHATASE 74 IU/L (46-116); ANION GAP 9 (8-16); ASPARTATE AMINO TRANSFERASE 30 U/L (10-37); BILIRUBIN,DIRECT 0.2 MG/DL (0-0.3); BILIRUBIN,TOTAL 0.8 MG/DL (0.1-1.0); BLOOD UREA NITROGEN 40 MG/DL (7-18); BUN/CREATININE RATIO 19.4 (10.0-20.0); CALCIUM 8.8 MG/DL (8.5-10.1); CHLORIDE 103 MMOL/L (99-107); CREATININE 2.06 MG/DL (0.60-1.10); GLUCOSE 144 MG/DL (70-104); MAGNESIUM 1.9 MG/DL (1.5-2.4); POTASSIUM 3.6 MMOL/L (3.5-5.1); PRO BRAIN NATRIURETIC PEPTIDE 5435 PG/ML (0-450); SODIUM 140 MMOL/L (135-145); TOTAL CARBON DIOXIDE 28.4 MMOL/L (24-32); TOTAL PROTEIN 6.6 G/DL (6.4-8.2); eCRCL 30 ML/MIN; eGFR 31 ML/MIN
[2024-11-24] MEDS ORDERED: CARV-50 PO (22:13)
[2024-11-24] MEDS ORDERED: FERR-29 PO (22:13)
[2024-11-24] MEDS ORDERED: magnesium Cl slow-release 64mg tablet PO PRN (23:50)
[2024-11-24] MEDS ORDERED: magnesium sulf-water 2g/50mL 50 ML IV PRN (23:50)
[2024-11-24] MEDS ORDERED: magnesium sulf-water 4G/100mL 100 ML IV PRN (23:50)
[2024-11-24] MEDS ORDERED: magnesium hydroxide 30ml (MOM) UD suspension PO PRN (23:50)
[2024-11-24] MEDS ORDERED: potassium Cl 40MEQ/1/2NS 520ml 520 ML IV PRN (23:50)
[2024-11-24] MEDS ORDERED: mag hydrox/Alum hydrox/simeth 30ml oral suspension PO PRN (23:50)
[2024-11-24] MEDS ORDERED: ondansetron/PF 4mg/2ml inj IV PRN (23:50)
[2024-11-24] MEDS ORDERED: acetaminophen 325mg tablet PO PRN (23:50)
[2024-11-24] MEDS ORDERED: potassium Cl 20 mEq SR tablet PO PRN ×2 (23:50)
[2024-11-25] VITALS (9 sets, daily range): BP systolic 135–204; BP diastolic 41–90; PULSE 53–62; RESP 14–20; TEMP 97.3–97.9; O2SAT 93–98
[2024-11-25 01:30] LABS: BASOPHILS # (AUTO) 0.1 X10'3 (0-0.2); BASOPHILS % (AUTO) 0.7 % (0-1); EOSINOPHILS # (AUTO) 0.4 X10'3 (0-0.9); EOSINOPHILS % (AUTO) 4.9 % (0-6); HEMATOCRIT 26.1 % (42.0-52.0); HEMOGLOBIN 8.8 g/dl (14.0-17.9); LYMPHOCYTES # (AUTO) 1.4 X10'3 (1.1-4.8); LYMPHOCYTES % (AUTO) 17.6 % (21-51); MEAN CORPUSCULAR HGB CONC 33.9 g/dL (33.0-36.5); MEAN CORPUSCULAR VOLUME 88.6 FL (78-98); MEAN PLATELET VOLUME 8.4 FL (7.4-10.4); MONOCYTES # (AUTO) 0.8 X10'3 (0-0.9); MONOCYTES % (AUTO) 9.8 % (2-12); NEUTROPHILS # (AUTO) 5.3 X10'3 (1.8-7.7); PLATELET COUNT 249 X10'3 (140-440); RED BLOOD COUNT 2.94 X10'6 (4.70-6.10); RED CELL DISTRIBUTION WIDTH 14.6 % (11.5-14.5); WHITE BLOOD COUNT 7.9 X10'3 (4.5-11.0)
[2024-11-25 01:41] LABS: ALBUMIN 2.7 G/DL (3.4-5.0); ANION GAP 5 (8-16); BLOOD UREA NITROGEN 40 MG/DL (7-18); BUN/CREATININE RATIO 21.7 (10.0-20.0); CALCIUM 9.2 MG/DL (8.5-10.1); CHLORIDE 106 MMOL/L (99-107); CREATININE 1.84 MG/DL (0.60-1.10); GLUCOSE 148 MG/DL (70-104); POTASSIUM 3.5 MMOL/L (3.5-5.1); SODIUM 141 MMOL/L (135-145); TOTAL CARBON DIOXIDE 29.6 MMOL/L (24-32); eCRCL 34 ML/MIN; eGFR 35 ML/MIN
[2024-11-25] MEDS: furosemide 10 MG/1 ML 10ml inj IV SCH ×2 (01:41→08:15)
[2024-11-25] MEDS: K and/or MAG REPLACEMENT MC SCH (08:00)
[2024-11-25] MEDS ORDERED: TRAVOPROST EACHEYE SCH (08:00)
[2024-11-25] MEDS: D MANNOSE 500 MG PO SCH (08:00)
[2024-11-25] MEDS ORDERED: [UNRECOGNIZED DRUG - OTHER] EACHEYE SCH (08:00)
[2024-11-25] MEDS: pantoprazole 40mg Tablet.DR PO SCH (08:11)
[2024-11-25] MEDS: OMEGA-3/DHA/EPA/FISH OIL 1 EACH CAPSULE.DR PO SCH (08:12)
[2024-11-25] MEDS: carVEDilol 12.5mg tablet PO SCH (08:12)
[2024-11-25] MEDS: apixaban 2.5mg tablet PO SCH (08:12)
[2024-11-25] MEDS: ezetimibe 10mg tablet PO SCH (08:12)
[2024-11-25] MEDS: ascorbic acid 500mg tablet PO SCH (08:13)
[2024-11-25] MEDS: amLODIPine 5mg tablet PO SCH (08:13)
[2024-11-25] MEDS: multivitamins, therapeutics tablet PO SCH (08:13)
[2024-11-25] MEDS: ferrous sulfate 325mg tablet PO SCH (08:13)
[2024-11-25] MEDS: isosorbide mononitrate 30mg tab.SR.24H PO SCH (08:14)
[2024-11-25] MEDS: aspirin 81mg, enteric-coated 1 TAB TABLET.DR PO SCH (08:14)
[2024-11-25] MEDS: prasugrel 10mg tablet PO SCH (10:04)
[2024-11-25] MEDS: prednisoLONE acetate 1% ophth susp 5ml EACHEYE SCH (10:04)
[2024-11-25] MEDS: methenamine hippurate 1gm tablet PO SCH (10:04)
[2024-11-25] MEDS: KETOROLAC TROMETHAMINE EACHEYE SCH (10:31)
[2024-11-25] MEDS: EYE EACHEYE SCH (10:31)
[2024-11-25] MEDS: hyDRALAzine 10mg tablet PO SCH (13:38)
[2024-11-25] MEDS: lisinopril 20mg tablet PO SCH (13:38)
[2024-11-25] MEDS: atorvastatin 20mg tablet PO SCH (19:38)
[2024-11-25] MEDS: furosemide 40mg/4ml inj IV SCH (19:39)
[2024-11-25] MEDS: latanoprost 0.005% 2.5ml ophthalmic drops EACHEYE SCH (19:55)
[2024-11-25] MEDS: carvedilol 6.25mg tablet PO SCH (20:00)
[2024-11-25] MEDS: hydrALAZINE 20mg/ml inj. IV PRN (21:45)
[2024-11-26] VITALS (10 sets, daily range): BP systolic 146–188; BP diastolic 41–75; PULSE 48–62; RESP 17–25; TEMP 97–98.2; O2SAT 92–97
[2024-11-26] MEDS: amLODIPine 5mg tablet PO SCH ×2 (04:42→09:27)
[2024-11-26 06:40] LABS: BASOPHILS # (AUTO) 0.1 X10'3 (0-0.2); BASOPHILS % (AUTO) 0.7 % (0-1); EOSINOPHILS # (AUTO) 0.9 X10'3 (0-0.9); EOSINOPHILS % (AUTO) 9.9 % (0-6); HEMATOCRIT 26.7 % (42.0-52.0); LYMPHOCYTES # (AUTO) 1.5 X10'3 (1.1-4.8); LYMPHOCYTES % (AUTO) 16.8 % (21-51); MEAN CORPUSCULAR HGB CONC 33.5 g/dL (33.0-36.5); MEAN CORPUSCULAR VOLUME 89.5 FL (78-98); MEAN PLATELET VOLUME 8.6 FL (7.4-10.4); MONOCYTES # (AUTO) 0.9 X10'3 (0-0.9); MONOCYTES % (AUTO) 10.1 % (2-12); NEUTROPHILS # (AUTO) 5.6 X10'3 (1.8-7.7); NEUTROPHILS % (AUTO) 62.5 % (42-75); PLATELET COUNT 275 X10'3 (140-440); RED BLOOD COUNT 2.99 X10'6 (4.70-6.10); RED CELL DISTRIBUTION WIDTH 14.2 % (11.5-14.5)
[2024-11-26 07:00] LABS: ALBUMIN 2.8 G/DL (3.4-5.0); ANION GAP 7 (8-16); BLOOD UREA NITROGEN 42 MG/DL (7-18); CALCIUM 9.7 MG/DL (8.5-10.1); CHLORIDE 104 MMOL/L (99-107); CREATININE 1.83 MG/DL (0.60-1.10); GLUCOSE 125 MG/DL (70-104); POTASSIUM 3.7 MMOL/L (3.5-5.1); SODIUM 142 MMOL/L (135-145); TOTAL CARBON DIOXIDE 30.8 MMOL/L (24-32); eCRCL 34 ML/MIN; eGFR 36 ML/MIN
[2024-11-26] MEDS ORDERED: hydrALAZINE 20mg/ml inj. IV PRN (08:20)
[2024-11-26] MEDS: magnesium hydroxide 30ml (MOM) UD suspension PO ONE (12:06)
[2024-11-26] MEDS ORDERED: ipratropium/albuterol 3ml nebule NEB PRN (12:40)
[2024-11-26] MEDS: hydrALAZINE 25 MG tablet PO SCH (15:40)
[2024-11-26] MEDS: ipratropium/albuterol 3ml nebule NEB SCH (15:55)
[2024-11-27 00:33] VITALS: BP 166/52
[2024-11-27 02:00] VITALS: BP 164/46; PULSE 64; RESP 14; TEMP 97.8; O2SAT 97
[2024-11-27 06:00] VITALS: BP 155/49; PULSE 54; RESP 16; TEMP 97.3; O2SAT 97
[2024-11-27 06:49] LABS: ANION GAP 10 (8-16); CHLORIDE 100 MMOL/L (99-107); GLUCOSE 131 MG/DL (70-104); POTASSIUM 4.2 MMOL/L (3.5-5.1); SODIUM 139 MMOL/L (135-145); TOTAL CARBON DIOXIDE 28.6 MMOL/L (24-32)
[2024-11-27 06:50] LABS: ALBUMIN 2.8 G/DL (3.4-5.0); BLOOD UREA NITROGEN 41 MG/DL (7-18); BUN/CREATININE RATIO 20.3 (10.0-20.0); CALCIUM 9.2 MG/DL (8.5-10.1); CREATININE 2.02 MG/DL (0.60-1.10); eCRCL 31 ML/MIN; eGFR 32 ML/MIN
[2024-11-27 07:45] LABS: BASOPHILS # (AUTO) 0.1 X10'3 (0-0.2); BASOPHILS % (AUTO) 0.8 % (0-1); EOSINOPHILS # (AUTO) 0.7 X10'3 (0-0.9); EOSINOPHILS % (AUTO) 8.8 % (0-6); HEMATOCRIT 32.5 % (42.0-52.0); HEMOGLOBIN 10.4 g/dl (14.0-17.9); LYMPHOCYTES # (AUTO) 1.1 X10'3 (1.1-4.8); LYMPHOCYTES % (AUTO) 14.2 % (21-51); MEAN CORPUSCULAR HEMOGLOBIN 29.6 PG (27.0-31.0); MEAN CORPUSCULAR VOLUME 92.7 FL (78-98); MEAN PLATELET VOLUME 8.2 FL (7.4-10.4); MONOCYTES # (AUTO) 0.8 X10'3 (0-0.9); MONOCYTES % (AUTO) 10.1 % (2-12); NEUTROPHILS # (AUTO) 5.1 X10'3 (1.8-7.7); NEUTROPHILS % (AUTO) 66.1 % (42-75); PLATELET COUNT 247 X10'3 (140-440); RED BLOOD COUNT 3.51 X10'6 (4.70-6.10); WHITE BLOOD COUNT 7.7 X10'3 (4.5-11.0)
[2024-11-27] MEDS: hydrALAZINE 25 MG tablet PO SCH (10:03)
[2024-11-27 10:06] VITALS: BP_SYST 155; PULSE 55
[2024-11-27] MEDS: furosemide 40mg/4ml inj IV SCH (10:09)
[2024-11-27] MEDS ORDERED: AMLO5TAB16 PO (10:50)
[2024-11-27] MEDS ORDERED: CARV6.253 PO (10:50)
[2024-11-27] MEDS ORDERED: HYDR25TA90 PO (10:50)
[2024-11-27] MEDS ORDERED: FURO-150 PO (10:53)
[2024-11-27] MEDS ORDERED: hydrALAZINE 20mg/ml inj. IV PRN (11:50)
== END 2024-11-27 13:04 | disposition home or self-care (01) | DRG 280 ==
LOC: ER 19:36 → UNDOADMIN 23:27 → ED HOLD 23:27 → PCU 3S 11-25 07:30
PROVIDERS: ADMIT Internal Medicine Pulmonary Disease; ATTEND Family Medicine
DX: I13.0 Hypertensive heart and chronic kidney disease with heart failure and stage 1 through stage 4 chronic kidney disease, or unspecified chronic kidney disease (principal); I50.33 Acute on chronic diastolic (congestive) heart failure; I21.4 Non-ST elevation (NSTEMI) myocardial infarction; N17.0 Acute kidney failure with tubular necrosis; G82.20 Paraplegia, unspecified; I48.0 Paroxysmal atrial fibrillation; I73.9 Peripheral vascular disease, unspecified; I35.0 Nonrheumatic aortic (valve) stenosis; Z20.822 Contact with and (suspected) exposure to COVID-19; E78.00 Pure hypercholesterolemia, unspecified; E78.5 Hyperlipidemia, unspecified; I43 Cardiomyopathy in diseases classified elsewhere; I25.10 Atherosclerotic heart disease of native coronary artery without angina pectoris; Z95.1 Presence of aortocoronary bypass graft; Z99.3 Dependence on wheelchair; Z88.2 Allergy status to sulfonamides; Z79.01 Long term (current) use of anticoagulants; Z79.82 Long term (current) use of aspirin; Z79.899 Other long term (current) drug therapy; Z90.49 Acquired absence of other specified parts of digestive tract
CPT/HCPCS: 36415; 70450; 71045; 80048; 80076; 83735; 83880; 84100; 84145; 84484; 85025; 85610; 85730; 87081; 87502; 87503; 87811; 93005; 93308; 93975; 94640; 94760; 99285; A6222; A6223; A6250; A6253; A6258; A6446; A6449; A6590; G0378; J0360; J1940

== ENCOUNTER 2024-12-21 05:05 | Inpatient (IN) | payer MEDICARE, OTHER ==
[~2024-12-21] VITALS: Ht 182.9 cm; Wt 240.0 kg
[~2024-12-21 05:05] MED LIST changes: -AMLO2.5T2 PO; +AMLO5TAB16 PO; -CLON0.2T PO; +FERR-29 PO; -FERR324T4 PO; +FURO-150 PO; -FURO40TA4 PO
[2024-12-21 06:08] LABS: BASOPHILS % (AUTO) 0.5 % (0-1); EOSINOPHILS # (AUTO) 0.4 X10'3 (0-0.9); EOSINOPHILS % (AUTO) 4.9 % (0-6); HEMATOCRIT 22.6 % (42.0-52.0); HEMOGLOBIN 7.4 g/dl (14.0-17.9); LYMPHOCYTES % (AUTO) 12.1 % (21-51); MEAN CORPUSCULAR HEMOGLOBIN 30.3 PG (27.0-31.0); MEAN CORPUSCULAR HGB CONC 32.9 g/dL (33.0-36.5); MEAN PLATELET VOLUME 9.3 FL (7.4-10.4); MONOCYTES # (AUTO) 0.5 X10'3 (0-0.9); NEUTROPHILS # (AUTO) 6.3 X10'3 (1.8-7.7); NEUTROPHILS % (AUTO) 76.5 % (42-75); PLATELET COUNT 206 X10'3 (140-440); RED BLOOD COUNT 2.45 X10'6 (4.70-6.10); RED CELL DISTRIBUTION WIDTH 14.4 % (11.5-14.5); WHITE BLOOD COUNT 8.3 X10'3 (4.5-11.0)
[2024-12-21 06:21] LABS: ALANINE AMINOTRANSFERASE 21 U/L (12-78); ALBUMIN 2.9 G/DL (3.4-5.0); ALBUMIN/GLOBULIN RATIO 0.8 (1.1-1.5); ALKALINE PHOSPHATASE 74 IU/L (46-116); ANION GAP 9 (8-16); ASPARTATE AMINO TRANSFERASE 13 U/L (10-37); BILIRUBIN,TOTAL 0.5 MG/DL (0.1-1.0); BLOOD UREA NITROGEN 43 MG/DL (7-18); BUN/CREATININE RATIO 27.4 (10.0-20.0); CALCIUM 9.4 MG/DL (8.5-10.1); CHLORIDE 112 MMOL/L (99-107); CREATININE 1.57 MG/DL (0.60-1.10); GLUCOSE 112 MG/DL (70-104); POTASSIUM 4.3 MMOL/L (3.5-5.1); SODIUM 145 MMOL/L (135-145); TOTAL CARBON DIOXIDE 23.7 MMOL/L (24-32); TOTAL PROTEIN 6.4 G/DL (6.4-8.2); eCRCL 40 ML/MIN; eGFR 43 ML/MIN
[2024-12-21 06:29] LABS: PRO BRAIN NATRIURETIC PEPTIDE 2194 PG/ML (0-450)
[2024-12-21 08:54] LABS: INR 1.1 INR; PROTHROMBIN TIME 11.1 SECONDS (9.0-12.0)
[2024-12-21] MEDS ORDERED: potassium Cl 20 mEq SR tablet PO PRN ×2 (09:10)
[2024-12-21] MEDS ORDERED: magnesium sulf-water 2g/50mL 50 ML IV PRN (09:10)
[2024-12-21] MEDS ORDERED: acetaminophen 325mg tablet PO PRN (09:10)
[2024-12-21] MEDS ORDERED: magnesium hydroxide 30ml (MOM) UD suspension PO PRN (09:10)
[2024-12-21] MEDS ORDERED: mag hydrox/Alum hydrox/simeth 30ml oral suspension PO PRN (09:10)
[2024-12-21] MEDS ORDERED: ondansetron/PF 4mg/2ml inj IV PRN (09:10)
[2024-12-21] MEDS ORDERED: potassium Cl 40MEQ/1/2NS 520ml 520 ML IV PRN (09:10)
[2024-12-21] MEDS ORDERED: magnesium sulf-water 4G/100mL 100 ML IV PRN (09:10)
[2024-12-21] MEDS ORDERED: magnesium Cl slow-release 64mg tablet PO PRN (09:10)
[2024-12-21] MEDS ORDERED: TRAV2.5D6 EACHEYE (09:30)
[2024-12-21 09:31] LABS: MAGNESIUM 2.1 MG/DL (1.5-2.4); PHOSPHORUS 3.3 MG/DL (2.3-4.5)
[2024-12-21] MEDS ORDERED: KETO5DRO40 EACHEYE (09:32)
[2024-12-21] MEDS ORDERED: FERR-116 PO (09:44)
[2024-12-21] MEDS ORDERED: CARV-50 PO (09:45)
[2024-12-21 14:58] LABS: OCCULT BLOOD STOOL POSITIVE (Neg)
[2024-12-21 15:01] VITALS: BP 197/66; PULSE 55; RESP 30; TEMP 97.5
[2024-12-21] MEDS: lisinopril 20mg tablet PO STA (15:14)
[2024-12-21] MEDS: amLODIPine 5mg tablet PO SCH (15:14)
[2024-12-21 15:15] VITALS: BP 202/71; PULSE 57; RESP 15; TEMP 97.6
[2024-12-21 16:00] VITALS: BP 210/62; PULSE 57; RESP 16
[2024-12-21 17:01] VITALS: BP 198/65; PULSE 61; RESP 19
[2024-12-21 17:30] VITALS: BP 190/57; PULSE 62; RESP 18; TEMP 97.8
[2024-12-21] MEDS: pantoprazole 40MG/NS 100ML BAG 100 ML IV SCH (17:33)
[2024-12-21] MEDS: hydrALAZINE 20mg/ml inj. IV ONE (17:33)
[2024-12-21 19:00] LABS: HEMATOCRIT 25.7 % (42.0-52.0); HEMOGLOBIN 8.5 g/dl (14.0-17.9); MEAN CORPUSCULAR HEMOGLOBIN 30.1 PG (27.0-31.0); MEAN CORPUSCULAR HGB CONC 33.1 g/dL (33.0-36.5); MEAN CORPUSCULAR VOLUME 91.1 FL (78-98); MEAN PLATELET VOLUME 9.2 FL (7.4-10.4); PLATELET COUNT 210 X10'3 (140-440); RED BLOOD COUNT 2.82 X10'6 (4.70-6.10); RED CELL DISTRIBUTION WIDTH 14.6 % (11.5-14.5)
[2024-12-21] MEDS: K and/or MAG REPLACEMENT MC SCH (20:00)
[2024-12-21] MEDS: carVEDilol 12.5mg tablet PO SCH (20:04)
[2024-12-21] MEDS: ascorbic acid 500mg tablet PO SCH (20:04)
[2024-12-21] MEDS: hydrALAZINE 20mg/ml inj. IV PRN (20:12)
[2024-12-21] MEDS: methenamine hippurate 1gm tablet PO SCH (20:31)
[2024-12-21] MEDS ORDERED: PREDNISOLONE ACETATE EACHEYE SCH (21:00)
[2024-12-21] MEDS: atorvastatin 20mg tablet PO SCH (21:23)
[2024-12-21] MEDS: polyethylene glycol 3350 17gm powd pack PO SCH (21:23)
[2024-12-21] MEDS: prednisoLONE acetate 1% ophth susp 5ml EACHEYE SCH (21:24)
[2024-12-21] MEDS: ketorolac tromethamine 0.5% ophthalmic drops EACHEYE SCH (21:24)
[2024-12-22] VITALS (24 sets, daily range): BP systolic 112–167; BP diastolic 35–55; PULSE 50–67; RESP 10–19; TEMP 97.5–98.1; O2SAT 96–100
[2024-12-22 06:34] LABS: BASOPHILS % (AUTO) 0.5 % (0-1); EOSINOPHILS # (AUTO) 0.4 X10'3 (0-0.9); EOSINOPHILS % (AUTO) 5.4 % (0-6); HEMATOCRIT 22.3 % (42.0-52.0); HEMOGLOBIN 7.3 g/dl (14.0-17.9); LYMPHOCYTES # (AUTO) 1.1 X10'3 (1.1-4.8); LYMPHOCYTES % (AUTO) 16.1 % (21-51); MEAN CORPUSCULAR HEMOGLOBIN 29.9 PG (27.0-31.0); MEAN CORPUSCULAR VOLUME 90.8 FL (78-98); MEAN PLATELET VOLUME 9.2 FL (7.4-10.4); MONOCYTES # (AUTO) 0.6 X10'3 (0-0.9); MONOCYTES % (AUTO) 8.5 % (2-12); NEUTROPHILS # (AUTO) 4.9 X10'3 (1.8-7.7); NEUTROPHILS % (AUTO) 69.5 % (42-75); PLATELET COUNT 176 X10'3 (140-440); RED BLOOD COUNT 2.45 X10'6 (4.70-6.10); RED CELL DISTRIBUTION WIDTH 14.7 % (11.5-14.5); WHITE BLOOD COUNT 7.1 X10'3 (4.5-11.0)
[2024-12-22 06:54] LABS: ALBUMIN 2.5 G/DL (3.4-5.0); ANION GAP 6 (8-16); BLOOD UREA NITROGEN 47 MG/DL (7-18); BUN/CREATININE RATIO 34.1 (10.0-20.0); CALCIUM 9.5 MG/DL (8.5-10.1); CHLORIDE 114 MMOL/L (99-107); CREATININE 1.38 MG/DL (0.60-1.10); GLUCOSE 91 MG/DL (70-104); POTASSIUM 4.3 MMOL/L (3.5-5.1); SODIUM 144 MMOL/L (135-145); TOTAL CARBON DIOXIDE 24.5 MMOL/L (24-32); eCRCL 45 ML/MIN; eGFR 49 ML/MIN
[2024-12-22] MEDS: ferrous sulfate 325mg tablet PO SCH (07:34)
[2024-12-22] MEDS: lisinopril 20mg tablet PO SCH (07:35)
[2024-12-22] MEDS: ezetimibe 10mg tablet PO SCH (07:35)
[2024-12-22] MEDS: multivitamins, therapeutics tablet PO SCH (07:35)
[2024-12-22] MEDS ORDERED: D MANNOSE 500 MG PO SCH (08:00)
[2024-12-22] MEDS ORDERED: fentaNYL/PF 50MCG/1 ML 2ML syringe ONE (10:18)
[2024-12-22] MEDS ORDERED: LIDOcaine 2% Viscous 15ml cup ONE (10:18)
[2024-12-22] MEDS ORDERED: MIDAZolam 1 MG/ML 5ML VIAL ONE (10:18)
[2024-12-22] MEDS ORDERED: simethicone 40mg/0.6ml oral drops 30ml ONE (10:29)
[2024-12-22] MEDS: pantoprazole 40 MG vial IV SCH (20:27)
[2024-12-23] VITALS (9 sets, daily range): BP systolic 127–169; BP diastolic 31–48; PULSE 54–60; RESP 13–18; TEMP 96.9–98.3; O2SAT 96–99
[2024-12-23 08:04] LABS: ALBUMIN 2.3 G/DL (3.4-5.0); ANION GAP 8 (8-16); BLOOD UREA NITROGEN 53 MG/DL (7-18); BUN/CREATININE RATIO 28.2 (10.0-20.0); CALCIUM 8.9 MG/DL (8.5-10.1); CHLORIDE 113 MMOL/L (99-107); CREATININE 1.88 MG/DL (0.60-1.10); GLUCOSE 92 MG/DL (70-104); POTASSIUM 4.2 MMOL/L (3.5-5.1); SODIUM 141 MMOL/L (135-145); eCRCL 33 ML/MIN; eGFR 35 ML/MIN
[2024-12-23 08:17] LABS: BASOPHILS % (AUTO) 0.6 % (0-1); EOSINOPHILS # (AUTO) 0.5 X10'3 (0-0.9); EOSINOPHILS % (AUTO) 6.3 % (0-6); LYMPHOCYTES # (AUTO) 1.2 X10'3 (1.1-4.8); LYMPHOCYTES % (AUTO) 15.7 % (21-51); MEAN CORPUSCULAR HEMOGLOBIN 29.2 PG (27.0-31.0); MEAN CORPUSCULAR HGB CONC 31.2 g/dL (33.0-36.5); MEAN CORPUSCULAR VOLUME 93.6 FL (78-98); MEAN PLATELET VOLUME 9.7 FL (7.4-10.4); MONOCYTES # (AUTO) 0.5 X10'3 (0-0.9); MONOCYTES % (AUTO) 7.1 % (2-12); NEUTROPHILS # (AUTO) 5.2 X10'3 (1.8-7.7); NEUTROPHILS % (AUTO) 70.3 % (42-75); PLATELET COUNT 173 X10'3 (140-440); RED CELL DISTRIBUTION WIDTH 15.7 % (11.5-14.5); WHITE BLOOD COUNT 7.4 X10'3 (4.5-11.0)
[2024-12-23 08:29] LABS: HEMOGLOBIN 6.7 g/dl (14.0-17.9)
[2024-12-23 08:30] LABS: HEMATOCRIT 21.6 % (42.0-52.0)
[2024-12-23] MEDS: furosemide 20 MG/2 ML vial IV SCH (13:20)
[2024-12-23 20:46] LABS: HEMATOCRIT 30.5 % (42.0-52.0); HEMOGLOBIN 10.1 g/dl (14.0-17.9); MEAN CORPUSCULAR HEMOGLOBIN 30.9 PG (27.0-31.0); MEAN CORPUSCULAR VOLUME 93.5 FL (78-98); MEAN PLATELET VOLUME 9.3 FL (7.4-10.4); PLATELET COUNT 187 X10'3 (140-440); RED BLOOD COUNT 3.27 X10'6 (4.70-6.10); WHITE BLOOD COUNT 8.6 X10'3 (4.5-11.0)
[2024-12-24] VITALS (8 sets, daily range): BP systolic 120–184; BP diastolic 30–73; PULSE 50–56; RESP 15–18; TEMP 97.2–97.9; O2SAT 95–97
[2024-12-24 07:10] LABS: BASOPHILS # (AUTO) 0.1 X10'3 (0-0.2); BASOPHILS % (AUTO) 0.6 % (0-1); EOSINOPHILS # (AUTO) 0.7 X10'3 (0-0.9); EOSINOPHILS % (AUTO) 8.8 % (0-6); HEMATOCRIT 30.1 % (42.0-52.0); HEMOGLOBIN 10.1 g/dl (14.0-17.9); LYMPHOCYTES # (AUTO) 1.3 X10'3 (1.1-4.8); LYMPHOCYTES % (AUTO) 16.5 % (21-51); MEAN CORPUSCULAR HEMOGLOBIN 31.1 PG (27.0-31.0); MEAN CORPUSCULAR HGB CONC 33.4 g/dL (33.0-36.5); MEAN CORPUSCULAR VOLUME 92.9 FL (78-98); MEAN PLATELET VOLUME 9.3 FL (7.4-10.4); MONOCYTES # (AUTO) 0.6 X10'3 (0-0.9); MONOCYTES % (AUTO) 7.3 % (2-12); NEUTROPHILS # (AUTO) 5.2 X10'3 (1.8-7.7); NEUTROPHILS % (AUTO) 66.8 % (42-75); PLATELET COUNT 188 X10'3 (140-440); RED BLOOD COUNT 3.24 X10'6 (4.70-6.10); RED CELL DISTRIBUTION WIDTH 14.7 % (11.5-14.5); WHITE BLOOD COUNT 7.9 X10'3 (4.5-11.0)
[2024-12-24 07:36] LABS: ALBUMIN 2.7 G/DL (3.4-5.0); ANION GAP 11 (8-16); BLOOD UREA NITROGEN 48 MG/DL (7-18); BUN/CREATININE RATIO 26.2 (10.0-20.0); CALCIUM 9.4 MG/DL (8.5-10.1); CHLORIDE 112 MMOL/L (99-107); CREATININE 1.83 MG/DL (0.60-1.10); GLUCOSE 101 MG/DL (70-104); SODIUM 143 MMOL/L (135-145); TOTAL CARBON DIOXIDE 20.3 MMOL/L (24-32); eCRCL 34 ML/MIN; eGFR 36 ML/MIN
[2024-12-24 18:55] LABS: HEMATOCRIT 27.9 % (42.0-52.0); HEMOGLOBIN 9.3 g/dl (14.0-17.9); MEAN CORPUSCULAR HEMOGLOBIN 30.6 PG (27.0-31.0); MEAN CORPUSCULAR HGB CONC 33.3 g/dL (33.0-36.5); MEAN PLATELET VOLUME 9.8 FL (7.4-10.4); PLATELET COUNT 180 X10'3 (140-440); RED BLOOD COUNT 3.03 X10'6 (4.70-6.10); RED CELL DISTRIBUTION WIDTH 14.7 % (11.5-14.5); WHITE BLOOD COUNT 7.9 X10'3 (4.5-11.0)
[2024-12-24] MEDS: pantoprazole 40mg Tablet.DR PO SCH (20:20)
[2024-12-25 02:00] VITALS: BP 134/52; PULSE 55; RESP 15; TEMP 98.7; O2SAT 94
[2024-12-25 06:00] VITALS: BP 149/29; PULSE 55; RESP 14; TEMP 98.7; O2SAT 97
[2024-12-25 07:25] LABS: BASOPHILS % (AUTO) 0.5 % (0-1); EOSINOPHILS # (AUTO) 0.8 X10'3 (0-0.9); EOSINOPHILS % (AUTO) 9.6 % (0-6); HEMATOCRIT 27.5 % (42.0-52.0); LYMPHOCYTES # (AUTO) 1.1 X10'3 (1.1-4.8); LYMPHOCYTES % (AUTO) 14.2 % (21-51); MEAN CORPUSCULAR HEMOGLOBIN 30.5 PG (27.0-31.0); MEAN CORPUSCULAR HGB CONC 32.8 g/dL (33.0-36.5); MEAN CORPUSCULAR VOLUME 92.8 FL (78-98); MEAN PLATELET VOLUME 9.6 FL (7.4-10.4); MONOCYTES # (AUTO) 0.7 X10'3 (0-0.9); MONOCYTES % (AUTO) 8.5 % (2-12); NEUTROPHILS # (AUTO) 5.3 X10'3 (1.8-7.7); NEUTROPHILS % (AUTO) 67.2 % (42-75); PLATELET COUNT 172 X10'3 (140-440); RED BLOOD COUNT 2.97 X10'6 (4.70-6.10); RED CELL DISTRIBUTION WIDTH 14.7 % (11.5-14.5); WHITE BLOOD COUNT 7.8 X10'3 (4.5-11.0)
[2024-12-25 07:50] LABS: ALBUMIN 2.6 G/DL (3.4-5.0); ANION GAP 11 (8-16); BLOOD UREA NITROGEN 57 MG/DL (7-18); BUN/CREATININE RATIO 26.8 (10.0-20.0); CALCIUM 9.4 MG/DL (8.5-10.1); CHLORIDE 111 MMOL/L (99-107); CREATININE 2.13 MG/DL (0.60-1.10); GLUCOSE 103 MG/DL (70-104); POTASSIUM 3.9 MMOL/L (3.5-5.1); SODIUM 143 MMOL/L (135-145); TOTAL CARBON DIOXIDE 21.5 MMOL/L (24-32); eCRCL 29 ML/MIN; eGFR 30 ML/MIN
[2024-12-25 08:00] VITALS: RESP 18
[2024-12-25 08:14] VITALS: BP_SYST 149; PULSE 55
[2024-12-25] MEDS ORDERED: FURO40TA4 PO (08:23)
[2024-12-25] MEDS ORDERED: PANT40TA54 PO (08:23)
== END 2024-12-25 10:20 | disposition home health service (06) | DRG 377 ==
LOC: ER 05:05 → ED HOLD 09:09 → PCU 3S 12-22 00:26
PROVIDERS: ADMIT Internal Medicine; ATTEND Internal Medicine
PROC: 30233N1 Transfusion of Nonautologous Red Blood Cells into Peripheral Vein, Percutaneous Approach (ICD-10-PCS; 2024-12-21)
PROC: 0DJ08ZZ Inspection of Upper Intestinal Tract, Via Natural or Artificial Opening Endoscopic (ICD-10-PCS; principal; 2024-12-22)
PROC: CD171ZZ Planar Nuclear Medicine Imaging of Gastrointestinal Tract using Technetium 99m (Tc-99m) (ICD-10-PCS; 2024-12-23)
DX: K92.1 Melena (principal); I21.A1 Myocardial infarction type 2; I50.33 Acute on chronic diastolic (congestive) heart failure; N17.0 Acute kidney failure with tubular necrosis; I13.0 Hypertensive heart and chronic kidney disease with heart failure and stage 1 through stage 4 chronic kidney disease, or unspecified chronic kidney disease; G82.20 Paraplegia, unspecified; D62 Acute posthemorrhagic anemia; I25.119 Atherosclerotic heart disease of native coronary artery with unspecified angina pectoris; N18.9 Chronic kidney disease, unspecified; I48.0 Paroxysmal atrial fibrillation; E78.00 Pure hypercholesterolemia, unspecified; Z95.1 Presence of aortocoronary bypass graft; Z93.3 Colostomy status; Z88.2 Allergy status to sulfonamides; Z79.01 Long term (current) use of anticoagulants; Z79.82 Long term (current) use of aspirin; Z79.899 Other long term (current) drug therapy; Z74.01 Bed confinement status
CPT/HCPCS: 36415; 36430; 43235; 71045; 78278; 80048; 80053; 82272; 83735; 83880; 84100; 84484; 85025; 85027; 85610; 86885; 86900; 86901; 86920; 87081; 93005; 99152; 99285; A4620; A9560; G0378; J0360; J1940; J2250; J2470; J3010; J7030; J7040; J7050; P9016

== ENCOUNTER 2025-01-22 08:08 | Inpatient (IN) | payer MEDICARE, OTHER ==
[~2025-01-22] VITALS: Ht 182.9 cm; Wt 109.1 kg
[~2025-01-22 08:08] MED LIST changes: +CARV-50 PO; -CARV6.253 PO; +FERR-116 PO; -FERR-29 PO; -FURO-150 PO; +FURO40TA4 PO; -HYDR25TA90 PO; -ISOS120T13 PO; -KETO1DRO OP; +KETO5DRO40 EACHEYE; -OMEG100037 PO; -OMEP40CA21 PO; +PANT40TA54 PO
[2025-01-22 08:59] LABS: BASOPHILS # (AUTO) 0.1 X10'3 (0-0.2); BASOPHILS % (AUTO) 0.6 % (0-1); EOSINOPHILS # (AUTO) 0.9 X10'3 (0-0.9); EOSINOPHILS % (AUTO) 10.1 % (0-6); HEMATOCRIT 31.9 % (42.0-52.0); HEMOGLOBIN 10.1 g/dl (14.0-17.9); LYMPHOCYTES # (AUTO) 0.8 X10'3 (1.1-4.8); LYMPHOCYTES % (AUTO) 9.2 % (21-51); MEAN CORPUSCULAR HEMOGLOBIN 29.8 PG (27.0-31.0); MEAN CORPUSCULAR HGB CONC 31.7 g/dL (33.0-36.5); MEAN CORPUSCULAR VOLUME 94.2 FL (78-98); MEAN PLATELET VOLUME 9.5 FL (7.4-10.4); MONOCYTES # (AUTO) 0.4 X10'3 (0-0.9); MONOCYTES % (AUTO) 4.9 % (2-12); NEUTROPHILS # (AUTO) 6.8 X10'3 (1.8-7.7); NEUTROPHILS % (AUTO) 75.2 % (42-75); PLATELET COUNT 203 X10'3 (140-440); RED BLOOD COUNT 3.39 X10'6 (4.70-6.10); RED CELL DISTRIBUTION WIDTH 14.2 % (11.5-14.5); WHITE BLOOD COUNT 9.1 X10'3 (4.5-11.0)
[2025-01-22 09:04] LABS: ALANINE AMINOTRANSFERASE 14 U/L (12-78); ALBUMIN/GLOBULIN RATIO 0.7 (1.1-1.5); ALKALINE PHOSPHATASE 82 IU/L (46-116); ANION GAP 8 (8-16); ASPARTATE AMINO TRANSFERASE 14 U/L (10-37); BILIRUBIN,TOTAL 0.5 MG/DL (0.1-1.0); BLOOD UREA NITROGEN 39 MG/DL (7-18); BUN/CREATININE RATIO 22.2 (10.0-20.0); CALCIUM 9.3 MG/DL (8.5-10.1); CHLORIDE 112 MMOL/L (99-107); CREATININE 1.76 MG/DL (0.60-1.10); GLUCOSE 121 MG/DL (70-104); POTASSIUM 4.5 MMOL/L (3.5-5.1); SODIUM 143 MMOL/L (135-145); TOTAL CARBON DIOXIDE 22.7 MMOL/L (24-32); TOTAL PROTEIN 7.4 G/DL (6.4-8.2); eCRCL 36 ML/MIN; eGFR 37 ML/MIN
[2025-01-22 09:12] LABS: PRO BRAIN NATRIURETIC PEPTIDE 2869 PG/ML (0-450)
[2025-01-22] MEDS ORDERED: magnesium sulf-water 2g/50mL 50 ML IV PRN (11:25)
[2025-01-22] MEDS ORDERED: acetaminophen 325mg tablet PO PRN ×2 (11:25)
[2025-01-22] MEDS ORDERED: mag hydrox/Alum hydrox/simeth 30ml oral suspension PO PRN (11:25)
[2025-01-22] MEDS ORDERED: potassium Cl 20 mEq SR tablet PO PRN ×2 (11:25)
[2025-01-22] MEDS ORDERED: magnesium sulf-water 4G/100mL 100 ML IV PRN (11:25)
[2025-01-22] MEDS ORDERED: HYDROcodone/acetaminophen 10/325mg tab PO PRN (11:25)
[2025-01-22] MEDS ORDERED: bisacodyl 10mg suppository rectal RC PRN (11:25)
[2025-01-22] MEDS ORDERED: ondansetron/PF 4mg/2ml inj IV PRN (11:25)
[2025-01-22] MEDS ORDERED: HYDROcodone/acetaminophen 5mg/325mg tablet PO PRN (11:25)
[2025-01-22] MEDS ORDERED: potassium Cl 40MEQ/1/2NS 520ml 520 ML IV PRN (11:25)
[2025-01-22] MEDS ORDERED: HYDR25TA90 PO (11:54)
[2025-01-22] MEDS ORDERED: OMEP20CA16 PO (12:15)
[2025-01-22] MEDS ORDERED: ISOS120T13 PO (12:15)
[2025-01-22] MEDS ORDERED: OMEG12002 PO (12:17)
[2025-01-22] MEDS ORDERED: hydrALAZINE 20mg/ml inj. IV PRN (13:10)
[2025-01-22] MEDS: hydrALAZINE 20mg/ml inj. IV ONE (13:32)
[2025-01-22 14:15] VITALS: BP 179/53; PULSE 53; RESP 18; O2SAT 99
[2025-01-22 15:15] VITALS: BP 175/52; PULSE 52; RESP 17; O2SAT 97
[2025-01-22] MEDS: furosemide 40mg/4ml inj IV ONE (15:50)
[2025-01-22 17:00] VITALS: BP 206/60; PULSE 79; RESP 19; O2SAT 96
[2025-01-22] MEDS: enalaprilat 1.25mg/ml 2ml vial IV ONE (17:23)
[2025-01-22 18:30] VITALS: BP 204/63; PULSE 56; RESP 19; TEMP 98.7; O2SAT 95
[2025-01-22] MEDS: NIFEdipine XL 30mg tablet PO ONE (18:45)
[2025-01-22] MEDS: carVEDilol 12.5mg tablet PO SCH (20:00)
[2025-01-22] MEDS: K and/or MAG REPLACEMENT MC SCH (20:00)
[2025-01-22] MEDS: docusate sod 100mg capsule PO SCH (20:00)
[2025-01-22] MEDS: furosemide 20 MG/2 ML vial IV SCH (21:00)
[2025-01-22] MEDS: atorvastatin 20mg tablet PO SCH (21:00)
[2025-01-22] MEDS: ascorbic acid 500mg tablet PO SCH (21:00)
[2025-01-22] MEDS: apixaban 2.5mg tablet PO SCH (21:00)
[2025-01-22] MEDS: hydrALAZINE 25 MG tablet PO SCH (21:01)
[2025-01-22] MEDS: methenamine hippurate 1gm tablet PO SCH (21:18)
[2025-01-22 22:00] VITALS: BP 184/60; PULSE 57; RESP 18; TEMP 98.1; O2SAT 95
[2025-01-22] MEDS: CefTRIAXone/D5W-Rocephin 1gm 50 ML IV ONE (23:16)
[2025-01-23 06:00] VITALS: BP 152/48; PULSE 52; RESP 18; TEMP 97.8; O2SAT 96
[2025-01-23 06:26] LABS: BASOPHILS # (AUTO) 0.1 X10'3 (0-0.2); BASOPHILS % (AUTO) 0.8 % (0-1); EOSINOPHILS # (AUTO) 0.8 X10'3 (0-0.9); EOSINOPHILS % (AUTO) 11.8 % (0-6); HEMATOCRIT 31.4 % (42.0-52.0); HEMOGLOBIN 10.3 g/dl (14.0-17.9); LYMPHOCYTES # (AUTO) 0.8 X10'3 (1.1-4.8); LYMPHOCYTES % (AUTO) 12.7 % (21-51); MEAN CORPUSCULAR HEMOGLOBIN 30.4 PG (27.0-31.0); MEAN CORPUSCULAR HGB CONC 32.8 g/dL (33.0-36.5); MEAN CORPUSCULAR VOLUME 92.7 FL (78-98); MEAN PLATELET VOLUME 9.3 FL (7.4-10.4); MONOCYTES # (AUTO) 0.5 X10'3 (0-0.9); MONOCYTES % (AUTO) 7.3 % (2-12); NEUTROPHILS # (AUTO) 4.5 X10'3 (1.8-7.7); NEUTROPHILS % (AUTO) 67.4 % (42-75); PLATELET COUNT 208 X10'3 (140-440); RED BLOOD COUNT 3.39 X10'6 (4.70-6.10); RED CELL DISTRIBUTION WIDTH 14.1 % (11.5-14.5); WHITE BLOOD COUNT 6.7 X10'3 (4.5-11.0)
[2025-01-23 07:00] LABS: ALANINE AMINOTRANSFERASE 15 U/L (12-78); ALBUMIN 2.8 G/DL (3.4-5.0); ALBUMIN/GLOBULIN RATIO 0.7 (1.1-1.5); ALKALINE PHOSPHATASE 80 IU/L (46-116); ANION GAP 9 (8-16); ASPARTATE AMINO TRANSFERASE 16 U/L (10-37); BILIRUBIN,TOTAL 0.6 MG/DL (0.1-1.0); BLOOD UREA NITROGEN 41 MG/DL (7-18); BUN/CREATININE RATIO 25.3 (10.0-20.0); CALCIUM 9.5 MG/DL (8.5-10.1); CHLORIDE 111 MMOL/L (99-107); CREATININE 1.62 MG/DL (0.60-1.10); GLUCOSE 109 MG/DL (70-104); MAGNESIUM 1.6 MG/DL (1.5-2.4); SODIUM 144 MMOL/L (135-145); TOTAL CARBON DIOXIDE 24.1 MMOL/L (24-32); eCRCL 39 ML/MIN; eGFR 41 ML/MIN
[2025-01-23] MEDS ORDERED: D MANNOSE 500 MG PO SCH (08:00)
[2025-01-23] MEDS: azithromycin 250mg tablet PO SCH (08:26)
[2025-01-23] MEDS: pantoprazole 40mg Tablet.DR PO SCH (08:26)
[2025-01-23] MEDS: prasugrel 10mg tablet PO SCH (08:28)
[2025-01-23] MEDS: aspirin 81mg, enteric-coated 1 TAB TABLET.DR PO SCH (08:29)
[2025-01-23] MEDS: ferrous sulfate 325mg tablet PO SCH (08:29)
[2025-01-23] MEDS: multivitamins, therapeutics tablet PO SCH (08:29)
[2025-01-23] MEDS: isosorbide mononitrate 30mg tab.SR.24H PO SCH (08:29)
[2025-01-23] MEDS: CefTRIAXone/D5W-Rocephin 1gm 50 ML IV SCH (08:31)
[2025-01-23 08:32] LABS: PRO BRAIN NATRIURETIC PEPTIDE 4931 PG/ML (0-450)
[2025-01-23 10:00] VITALS: BP 174/57; PULSE 53; RESP 11; TEMP 97.5; O2SAT 95
[2025-01-23] MEDS: ezetimibe 10mg tablet PO SCH (10:03)
[2025-01-23] MEDS: amLODIPine 5mg tablet PO SCH (10:04)
[2025-01-23] MEDS: lisinopril 20mg tablet PO SCH (10:04)
[2025-01-23 13:16] VITALS: BP 119/42
[2025-01-23 18:30] VITALS: BP 144/44; PULSE 49; RESP 16; TEMP 97; O2SAT 96
[2025-01-23] MEDS: furosemide 20 MG/2 ML vial IV SCH (21:28)
[2025-01-23] MEDS: sacubitril/valsartan 24mg-26mg tablet PO SCH (21:29)
[2025-01-23 22:00] VITALS: BP 150/43; PULSE 59; RESP 16; TEMP 97.6; O2SAT 96
[2025-01-24 06:00] VITALS: BP 141/45; PULSE 56; RESP 18; TEMP 98.2; O2SAT 95
[2025-01-24 06:11] LABS: BASOPHILS # (AUTO) 0.1 X10'3 (0-0.2); BASOPHILS % (AUTO) 0.9 % (0-1); EOSINOPHILS % (AUTO) 14.8 % (0-6); HEMATOCRIT 29.9 % (42.0-52.0); HEMOGLOBIN 9.8 g/dl (14.0-17.9); LYMPHOCYTES # (AUTO) 1.2 X10'3 (1.1-4.8); LYMPHOCYTES % (AUTO) 18.3 % (21-51); MEAN CORPUSCULAR HEMOGLOBIN 30.3 PG (27.0-31.0); MEAN CORPUSCULAR HGB CONC 32.8 g/dL (33.0-36.5); MEAN CORPUSCULAR VOLUME 92.5 FL (78-98); MEAN PLATELET VOLUME 9.5 FL (7.4-10.4); MONOCYTES # (AUTO) 0.6 X10'3 (0-0.9); MONOCYTES % (AUTO) 8.9 % (2-12); NEUTROPHILS # (AUTO) 3.8 X10'3 (1.8-7.7); NEUTROPHILS % (AUTO) 57.1 % (42-75); PLATELET COUNT 208 X10'3 (140-440); RED BLOOD COUNT 3.23 X10'6 (4.70-6.10); RED CELL DISTRIBUTION WIDTH 14.2 % (11.5-14.5); WHITE BLOOD COUNT 6.7 X10'3 (4.5-11.0)
[2025-01-24 06:24] LABS: ALANINE AMINOTRANSFERASE 19 U/L (12-78); ALBUMIN 2.7 G/DL (3.4-5.0); ALBUMIN/GLOBULIN RATIO 0.7 (1.1-1.5); ALKALINE PHOSPHATASE 75 IU/L (46-116); ANION GAP 7 (8-16); ASPARTATE AMINO TRANSFERASE 20 U/L (10-37); BILIRUBIN,TOTAL 0.6 MG/DL (0.1-1.0); BLOOD UREA NITROGEN 39 MG/DL (7-18); BUN/CREATININE RATIO 22.7 (10.0-20.0); CALCIUM 9.1 MG/DL (8.5-10.1); CHLORIDE 109 MMOL/L (99-107); CREATININE 1.72 MG/DL (0.60-1.10); GLUCOSE 88 MG/DL (70-104); MAGNESIUM 1.5 MG/DL (1.5-2.4); POTASSIUM 4.1 MMOL/L (3.5-5.1); SODIUM 142 MMOL/L (135-145); TOTAL CARBON DIOXIDE 25.8 MMOL/L (24-32); TOTAL PROTEIN 6.6 G/DL (6.4-8.2); eCRCL 36 ML/MIN; eGFR 38 ML/MIN
[2025-01-24 07:36] VITALS: BP_SYST 141; PULSE 56
[2025-01-24 08:00] VITALS: RESP 18; O2SAT 95
[2025-01-24] MEDS ORDERED: SACU1TAB PO (11:14)
[2025-01-24] MEDS ORDERED: FURO40TA4 PO (11:14)
[2025-01-24] MEDS ORDERED: JUVEN Smoothie Arginine/Glut./Ca2+Bmb (Juven 19.3pkt) 240ml cup PO SCH (12:30)
== END 2025-01-24 12:40 | disposition home or self-care (01) | DRG 280 ==
LOC: ER 08:09 → ED HOLD 11:30 → ORTHO 4S 18:30
PROVIDERS: ADMIT Family Medicine; ATTEND Family Medicine
DX: I13.0 Hypertensive heart and chronic kidney disease with heart failure and stage 1 through stage 4 chronic kidney disease, or unspecified chronic kidney disease (principal); I50.33 Acute on chronic diastolic (congestive) heart failure; I21.A1 Myocardial infarction type 2; G82.20 Paraplegia, unspecified; I16.1 Hypertensive emergency; I48.0 Paroxysmal atrial fibrillation; N18.9 Chronic kidney disease, unspecified; I73.9 Peripheral vascular disease, unspecified; K21.9 Gastro-esophageal reflux disease without esophagitis; E78.00 Pure hypercholesterolemia, unspecified; I25.10 Atherosclerotic heart disease of native coronary artery without angina pectoris; Z88.2 Allergy status to sulfonamides; Z86.73 Personal history of transient ischemic attack (TIA), and cerebral infarction without residual deficits; Z95.1 Presence of aortocoronary bypass graft; Z79.01 Long term (current) use of anticoagulants; Z79.82 Long term (current) use of aspirin; Z79.899 Other long term (current) drug therapy; Z95.5 Presence of coronary angioplasty implant and graft
CPT/HCPCS: 36415; 71045; 80053; 82948; 83735; 83880; 84484; 85025; 87081; 93005; 99285; A4421; A4615; A6212; A6213; A6223; A6449; A6590; G0378; J0360; J0696; J1940; J3490

== ENCOUNTER 2025-05-20 09:02 | Inpatient (IN) | payer MEDICARE, OTHER ==
[~2025-05-20] VITALS: Ht 182.9 cm; Wt 109.1 kg
[~2025-05-20 09:02] MED LIST changes: +HYDR25TA90 PO; +ISOS120T13 PO; -KETO5DRO40 EACHEYE; -LISI40TA13 PO; +OMEG12002 PO; +OMEP20CA16 PO; -PANT40TA54 PO; +PRAS10TA21 PO; -PRAS10TA6 PO; +SACU1TAB PO; +[UNRECOGNIZED DRUG - CODE] EACHEYE
--- NOTE | 2025-05-20 09:26 | Physician Documentation ---
History of Present Illness ~ Chief Complaint: Abnormal Lab(s) Stated Complaint: KIDNEY COMPLICATIONS Time Seen by MD: 09:13 Primary Medical Doctor: ROBBIE Murillo This very pleasant 84-year-old male presents to the ED with concerns over abnor mal lab values primarily a decrease in kidney function. [facility] for nephrololgy consultatino. Currently he has a GFR of 21 potassium of 4.9 a creatinine of 2.9. The patient verbally states he has no medical complaints. Has no difficulty urinating has no pain. Reports" I am 84 years old I assume not everything is going to work the same as they were not 21". Medication Reconciliation Allergies: Coded Allergies: Sulfa (Sulfonamide Antibiotics) (Verified Allergy, Unknown, 05/20/25) Scheduled Amlodipine Besylate (Amlodipine Besylate), 2 TAB PO DAILY Apixaban (Eliquis), 1 TAB PO Q12H, (Reported) Ascorbic Acid* (Vitamin C*), 1 TAB PO BID, (Reported) Aspirin (Aspir 81), 1 TAB PO DAILY, (Reported) Atorvastatin Calcium* (Lipitor*), 1 TABLET PO HS, (Reported) Carvedilol (Carvedilol), 1 TAB PO Q12H, (Reported) D-Mannose (Azo D-Mannose), 500 MG PO DAILY, (Reported) Ezetimibe (Zetia), 1 TAB PO DAILY, (Reported) Ferrous Sulfate (Iron), 1 TAB PO DAILY, (Reported) Furosemide 40 MG (Lasix), 1 TAB PO BID Hydralazine Hcl* (Apresoline*), 1 TAB PO TID, (Reported) Isosorbide Mononitrate (Isosorbide Mononitrate ER), 1 TAB PO DAILY, (Reported) Ketorolac Tromethamine (Ketorolac Tromethamine), 1 DROP EACHEYE TID, (Reported) Methenamine Hippurate (Methenamine Hippurate), 1 TAB PO Q12H, (Reported) Multivitamin (Multi Vitamin Daily), 1 TAB PO DAILY, (Reported) [place]-3/Dha/Epa/Fish Oil (Fish Oil 1,200 mg Softgel), 1 CAP PO DAILY, (Reported) Omeprazole (Omeprazole), 1 CAP PO DAILY, (Reported) Prasugrel Hydrochloride (Effient), 1 TAB PO DAILY, (Reported) Prednisolone Acetate/Pf (Prednisolone Acet 1% Eye Drop), 1 DROP EACHEYE TID, (Reported) Sacubitril/Valsartan (Entresto 24 mg-26 mg Tablet), 1 TABLET PO BID Travoprost (Travoprost), 1 DROP EACHEYE TID, (Reported) Past Medical History Past Medical History: Coronary Artery Disease, High Cholesterol, Hypertension Past Surgical History: angioplasty, colectomy, coronary bypass surgery Patient History: FH: heart disease FATHER (STROKE, CVD), MOTHER (HEART DX AND STROKE), Alcohol Use: None Drug Use: none Lives with: Spouse Lives In: Home Occupation: disabled Review of Systems All Other Systems at this time: Reviewed and Negative ROS As stated above in the HPI, otherwise all systems are reviewed and negative. Physical Exam Vital Signs: Temperature: 98.2, Source: Temporal, Heart Rate: 50, Respiratory Rate: 16, BP: 159/53, Weight: 109.090 Physical Exam General: Alert, no apparent distress. Respiratory: Lungs clear, no respiratory distress. Cardiovascular: Regular rate and rhythm, no murmurs. Neurologic: Oriented x4. Psychiatric: Normal mood and affect. Progress Results/Orders Results/Orders Orders - TK MUÑIZ DAIRY EQUIPMENT INSTALLER Urinalysis, Cult If Indicated (05/20/25 09:13) Completed Orders - TK MUÑIZ DAIRY EQUIPMENT INSTALLER Lipase (05/20/25 09:13) CMP (05/20/25 09:13) Vital Signs 05/20/25 05/20/25 05/20/25 09:05 09:47 10:11 Temp 98.2 Pulse 50 47 Resp 16 17 17 B/P (MAP) 159/53 125/41 (69) Pulse Ox 97 O2 Flow Rate 0 Laboratory Tests Test 05/20/25 09:28 White Blood Count 7.6 Red Blood Count 3.56 L Hemoglobin 10.3 L Hematocrit 31.0 L Mean Corpuscular Volume 87.0 Mean Corpuscular Hemoglobin 29.0 Mean Corpuscular Hemoglobin Concent 33.3 Red Cell Distribution Width 15.7 H Platelet Count 172 Mean Platelet Volume 9.2 Neutrophils (%) (Auto) 67.1 Lymphocytes (%) (Auto) 12.8 L Monocytes (%) (Auto) 8.5 Eosinophils (%) (Auto) 11.1 H Basophils (%) (Auto) 0.5 Neutrophils # (Auto) 5.1 Lymphocytes # (Auto) 1.0 L Monocytes # (Auto) 0.7 Eosinophils # (Auto) 0.8 Basophils # (Auto) 0.0 CBC Comment Sodium Level 135 Potassium Level 4.5 Chloride Level 103 Carbon Dioxide Level 23.7 L Anion Gap 8 Blood Urea Nitrogen 83 H Creatinine 2.93 H Estimated GFR/1.73 m2 21 BUN/Creatinine Ratio 28.3 H Glucose Level 97 Calcium Level 9.6 Total Bilirubin 0.7 Aspartate Amino Transf (AST/SGOT) 14 Alanine Aminotransferase (ALT/SGPT) 17 Alkaline Phosphatase 83 Total Protein 7.2 Albumin 3.1 L Globulin 4.1 Albumin/Globulin Ratio 0.8 L Lipase 84 H Chemistry Comments Departure Impression: Primary Impression: Abnormal laboratory test result Referrals: NO PRIMARY CARE PROVIDER (PCP) Signature Scribe Signature: g Attestation: Scribed for Tk Muñiz Beam Press Operator by Tk Gaitan NP . 05/20/25 09:31 TK MUÑIZ NP May 20, 2025 09:26
[2025-05-20 09:41] LABS: MEAN PLATELET VOLUME 9.2 FL (7.4-10.4); RED CELL DISTRIBUTION WIDTH 15.7 % (11.5-14.5)
[2025-05-20 09:55] LABS: CREATININE 2.93 MG/DL (0.60-1.10); TOTAL CARBON DIOXIDE 23.7 MMOL/L (24-32); eCRCL 21 ML/MIN; eGFR 21 ML/MIN
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
[2025-05-20] MEDS ORDERED: potassium Cl 20 mEq SR tablet PO PRN ×2 (10:35)
[2025-05-20] MEDS ORDERED: magnesium hydroxide 30ml (MOM) UD suspension PO PRN (10:35)
[2025-05-20] MEDS ORDERED: magnesium sulf-water 2g/50mL 50 ML IV PRN (10:35)
[2025-05-20] MEDS ORDERED: potassium Cl 40MEQ/1/2NS 520ml 520 ML IV PRN (10:35)
[2025-05-20] MEDS ORDERED: SACU1TAB PO (10:35)
[2025-05-20] MEDS ORDERED: HYDROcodone/acetaminophen 5mg/325mg tablet PO PRN (10:35)
[2025-05-20] MEDS ORDERED: magnesium Cl slow-release 64mg tablet PO PRN (10:35)
[2025-05-20] MEDS ORDERED: magnesium sulf-water 4G/100mL 100 ML IV PRN (10:35)
[2025-05-20] MEDS ORDERED: FURO40TA4 PO (10:35)
[2025-05-20] MEDS ORDERED: HYDROcodone/acetaminophen 10/325mg tab PO PRN (10:35)
[2025-05-20] MEDS ORDERED: AMLO10TA13 PO (10:35)
--- NOTE | 2025-05-20 10:44 | ELECTROCARDIOGRAPH REPORT ---
[facility] Test Date: 2025-05-20 Test Time: 10:41:10 Pat Name: VEE FARR Department: [facility]- Patient ID: [facility]-[id number] Room: ORTHO [facility] Gender: M Prior Authorization Technician: : 1940 Requested By: MINA MUÑIZ Order Number: [id number] Reading MD: Dr. Tom Tovar Measurements Intervals [place] Rate: 46 P: -72 CO: 188 QRS: 43 QRSD: 116 T: 57 QT: 476 QTc: 417 Interpretive Statements Sinus or ectopic atrial bradycardia Incomplete left bundle branch block Electronically Signed On 05-21-2025 18:21:[address] Tom Tovar Please click the below link to view image of tracing.
[2025-05-20 11:11] LABS: PRO BRAIN NATRIURETIC PEPTIDE 464 PG/ML (0-450)
[2025-05-20 11:12] LABS: LEUKOCYTE ESTERASE ,URINE MODERATE (Neg); NITRITES, URINE NEGATIVE (Neg); OCCULT BLOOD,URINE NEGATIVE (Neg)
[2025-05-20 11:25] LABS: UA COLLECTION TYPE CLN CATCH MIDSTREAM
[2025-05-20 11:26] LABS: MUCUS STRANDS NONE SEEN /LPF (Neg); SQUAMOUS EPITHELIAL CELL,UR NONE SEEN /LPF (FEW)
[2025-05-20 12:49] VITALS: BP 163/57; PULSE 46; RESP 16; TEMP 96; O2SAT 100
[2025-05-20] MEDS: prednisoLONE acetate 1% ophth susp 5ml EACHEYE SCH (13:33)
[2025-05-20] MEDS: TRAVOPROST EYE EACHEYE SCH (13:33)
[2025-05-20] MEDS: K and/or MAG REPLACEMENT MC SCH (18:35)
[2025-05-20 20:00] VITALS: BP 142/45; PULSE 46; RESP 16
[2025-05-20] MEDS: sacubitril/valsartan 24mg-26mg tablet PO SCH (20:00)
[2025-05-20] MEDS: docusate sod 100mg capsule PO SCH (20:00)
[2025-05-20] MEDS: carvedilol 6.25mg tablet PO SCH (20:00)
[2025-05-20] MEDS: heparin, porcine 5000 units/ml vial SQ SCH (20:05)
[2025-05-20] MEDS: pantoprazole 40mg Tablet.DR PO SCH (20:05)
[2025-05-20 22:00] VITALS: BP 134/75; PULSE 49; RESP 18; TEMP 96.1; O2SAT 98
[2025-05-21] VITALS (9 sets, daily range): BP systolic 148–183; BP diastolic 41–60; PULSE 49–58; RESP 14–20; TEMP 96.6–98.1; O2SAT 96–98
[2025-05-21 05:34] LABS: MEAN PLATELET VOLUME 9.8 FL (7.4-10.4); RED CELL DISTRIBUTION WIDTH 15.2 % (11.5-14.5)
[2025-05-21 05:59] LABS: CREATININE 2.74 MG/DL (0.60-1.10); TOTAL CARBON DIOXIDE 25.0 MMOL/L (24-32); eCRCL 23 ML/MIN; eGFR 22 ML/MIN
[2025-05-21] MEDS: OMEGA-3/DHA/EPA/FISH OIL 1 EACH CAPSULE.DR PO SCH (07:20)
[2025-05-21] MEDS: aspirin 81mg, enteric-coated 1 TAB TABLET.DR PO SCH (07:22)
[2025-05-21] MEDS: multivitamins, therapeutics tablet PO SCH (07:24)
[2025-05-21] MEDS: isosorbide mononitrate 30mg tab.SR.24H PO SCH (07:24)
[2025-05-21] MEDS ORDERED: D MANNOSE 500 MG PO SCH (08:00)
[2025-05-21] MEDS: ringers solution, lacted 1,000 ML IV ONE (08:33)
[2025-05-21 09:24] LABS: CREATININE,URINE RANDOM 36.0 MG/DL; GLUCOSE,URINE RANDOM 3.0 MG/DL; TOTAL PROTEIN,URINE RANDOM 62.7 MG/DL
[2025-05-21] MEDS: CefTRIAXone 2gm/D5W 50ml BAG 50 ML IV SCH (10:00)
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
[2025-05-21] MEDS: cloNIDine 0.3mg/24 hour patch (7 day patch) TD ONE (12:22)
--- NOTE | 2025-05-21 12:34 | RADIOLOGY REPORT ---
US ULTRASOUND KIDNEY NON VASC HISTORY: HERMINIO, UTI COMPARISON: None TECHNIQUE: Transverse and longitudinal grayscale and color doppler images were obtained of the kidney s and bladder. FINDINGS: Right kidney: Size: 12.0 cm Cortical thickness: Normal Echogenicity: Increased Stones: None Masses: Multiple cysts with largest measures 5.6 cm. Hydronephrosis: None Ureters: Not well visualized. Other: None Left kidney: Size: 12.2 cm Cortical thickness: Normal Echogenicity: Increased Stones: None Masses: Multiple cysts with largest measures 6.7 cm. Hydronephrosis: None Ureters: Not well visualized. Other: None Bladder: Normal Other: None. IMPRESSION: Echogenic kidneys can be seen with medical renal disease. Bilateral renal cysts largest measures 5.6 cm on the right and 6.7 cm on the left.
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
--- NOTE | 2025-05-21 15:49 | CARDIOLOGY REPORT ---
APPROVED REPORT EXAM: Comprehensive 2D, Doppler, and color-flow Echocardiogram. Patient Location: 4012 [address] Heart Rate: 42 bpm Rhythm: SINUS BRADYCARDIA Indications CONGESTIVE HEART FAILURE CABG x1 2017 HYPERTENSION Thermostat Repairer: MD Rebecca Previous echo: 11-25-24 [facility] EF 65%, GLADIS: 1.25, GRAD: 47/25, PK V: 355, trTR, trMR, LAE, NO SIGNIFICAN T MS 2D Dimensions IVSd 1.2 (0.7-1.1cm) LVDd 4.8 cm PWd 1.2 (0.7-1.1cm) IVSs 1.6 (0.8-1.2cm) LVDs 3.1 (2.5-4.0cm) PWs 1.6 (0.8-1.2cm) LVOT Diameter 2.08 (1.8-2.4cm) LVEF(%) 63.8 (>50%) FS (%) 34.7 % SV 67.5 ml CO 6.5 L/min M-Mode Dimensions Left Atrium(MM) 3.40 (2.5-4.0cm) IVSd 0.76 (0.7-1.1cm) LVDd 6.66 (4.0-5.6cm) Aortic Root 3.75 (2.2-3.7cm) PWd 0.89 (0.7-1.1cm) Aortic Cusp Exc 1.15 (1.5-2.0cm) IVSs 1.20 cm LVDs 4.22 (2.0-3.8cm) FS (%) 37 % PWs 1.37 cm ESV(Teich) 79.6 ml LVEF(%) 65 (>50%) Aortic Valve AoV Peak Chapo. 336.0 cm/s AoV VTI 101.2 cm AO Peak GR. 45.2 mmHg AO Mean GR. 24 mmHg LVOT VTI 37.27 cm LVOT Peak Chapo. 127.3 cm/s GLADIS(VTI)/BSA 1.25 cm2/m2 GLADIS (VTI) 1.25 cm2 AI P 1/2 Time 888 ms Mitral Valve MV E Velocity 95.1 cm/s MV Peak Gr. 13 mmHg MV DECEL TIME 412 ms MV A Velocity 128.1 cm/s MV Mean Gr. 3 mmHg MV PHT 96 ms E/A Ratio 0.7 MVA (PHT) 2.00 cm2 MV OKrq945.7 cm/sMV VMean73.9 cm/s MVA VTI2.00 cm2MV VTI77.2 cm Tricuspid Valve TR P. Velocity 274 cm/s RAP ESTIMATE 10 mmHg TR Peak Gr. 30 mmHg RVSP 40 mmHg LEFT VENTRICLE Normal LV size and function. Mild concentric hypertrophy. LVEF is 65-70%. RIGHT VENTRICLE RV appears normal in size and function. Elevated right heart pressures as noted above. ATRIA The left atrium size is normal. AORTIC VALVE Trileaflet AV appears moderately sclerotic & calcified with moderate stenosis. GLADIS is measured at 1.2 5 cmsq. Peak / mean gradients of 45/24 mmHG. Peak velocity is measured at 336 cm/s. Mild insufficienc y. MITRAL VALVE Moderate MV annular calcification & thickening (sofia PML) with very mild stenosis. MVA is measured at 2.0 cmsq. Peak / mean gradients of 13/3 mmHG. Peak velocity is measured at 128 cm/s. Trace regurgitat ion. TRICUSPID VALVE TV appears structurally normal with trace regurgitation. PULMONIC VALVE Normal PV without stenosis, physiologic insufficiency. GREAT VESSELS The aortic root is upper limit normal in size. PERICARDIUM Normal pericardium. No effusion. Other Information Study Quality: Adequate
[2025-05-21] MEDS: JUVEN Smoothie Arginine/Glut./Ca2+Bmb (Juven 19.3pkt) 240ml cup PO SCH (18:04)
[2025-05-21] MEDS: TRAVOPROST EYE EACHEYE SCH (20:14)
[2025-05-22] VITALS (8 sets, daily range): BP systolic 154–201; BP diastolic 40–66; PULSE 56–77; RESP 13–16; TEMP 97.4–98.4; O2SAT 94–98
[2025-05-22 05:28] LABS: MEAN PLATELET VOLUME 9.2 FL (7.4-10.4); RED CELL DISTRIBUTION WIDTH 15.6 % (11.5-14.5)
[2025-05-22 06:03] LABS: CREATININE 2.26 MG/DL (0.60-1.10); LACTATE DEHYDROGENASE 147 U/L (85-227); TOTAL CARBON DIOXIDE 21.8 MMOL/L (24-32); eCRCL 28 ML/MIN; eGFR 28 ML/MIN
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
[2025-05-22] MEDS: hydrALAZINE 20mg/ml inj. IV PRN (17:06)
[2025-05-22] MEDS: ondansetron/PF 4mg/2ml inj IV PRN (18:52)
[2025-05-22] MEDS ORDERED: labetalol 20mg/4ml (5mg/ml) syringe IV PRN (21:25)
[2025-05-22] MEDS: labetalol 20mg/4ml (5mg/ml) syringe IV ONE (21:51)
[2025-05-22] MEDS: mag hydrox/Alum hydrox/simeth 30ml oral suspension PO PRN (23:51)
[2025-05-23] VITALS (8 sets, daily range): BP systolic 129–158; BP diastolic 46–53; PULSE 49–54; RESP 12–20; TEMP 97–97.9; O2SAT 95–98
[2025-05-23 06:49] LABS: MEAN PLATELET VOLUME 9.6 FL (7.4-10.4); RED CELL DISTRIBUTION WIDTH 15.7 % (11.5-14.5)
[2025-05-23 07:10] LABS: CREATININE 2.51 MG/DL (0.60-1.10); TOTAL CARBON DIOXIDE 21.6 MMOL/L (24-32); eCRCL 25 ML/MIN; eGFR 25 ML/MIN
[2025-05-23 08:17] LABS: HBSAG SCREEN Negative (Negative)
[2025-05-23 09:12] LABS: COMPLEMENT C3, SERUM 119 mg/dL (82-167); COMPLEMENT C4, SERUM 34 mg/dL (12-38)
[2025-05-23] MEDS: nitroGLYCERIN 1gm ointment UD TP SCH (09:46)
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
[2025-05-23 11:12] LABS: ANTINUCLEAR ANTIBODIES Positive (Negative)
[2025-05-24 02:00] VITALS: BP 142/53; PULSE 50; RESP 17; TEMP 98; O2SAT 97
[2025-05-24 06:00] VITALS: BP 163/54; PULSE 56; RESP 14; TEMP 97.6; O2SAT 97
[2025-05-24 06:49] LABS: MEAN PLATELET VOLUME 9.4 FL (7.4-10.4); RED CELL DISTRIBUTION WIDTH 15.6 % (11.5-14.5)
[2025-05-24 07:10] LABS: CREATININE 2.37 MG/DL (0.60-1.10); TOTAL CARBON DIOXIDE 21.4 MMOL/L (24-32); eCRCL 26 ML/MIN; eGFR 26 ML/MIN
[2025-05-24] MEDS ORDERED: cloNIDine 0.3mg/24 hour patch (7 day patch) TD ONE (07:35)
[2025-05-24 08:00] VITALS: RESP 15; O2SAT 97
[2025-05-24] MEDS ORDERED: PRAZ1CAP5 PO (08:16)
[2025-05-24] MEDS ORDERED: HYDR25TA90 PO (08:16)
[2025-05-24] MEDS ORDERED: ISOS30TA9 PO (08:21)
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
[2025-05-24 11:00] VITALS: BP 172/59; PULSE 61; RESP 13; TEMP 97.9; O2SAT 97
[2025-05-24] MEDS ORDERED: CARV-164 PO (11:23)
--- NOTE | 2025-05-24 11:49 | DISCHARGE SUMMARY ---
Discharge Summary Providers to CC ~ Discharge Summary Admission Diagnosis: HERMINIO on CKD Hospital Course DATE OF ADMISSION: 05/20/25 DATE OF DISCHARGE: 05/24/25 Discharge Diagnosis\\Comment: Prerenal HERMINIO 2/2 dehydration/vasomotor nephropathy HERMINIO on CKD, stage 3b Nephrotic syndrome CAD s/p four stents and a CABG HTN HLD Sinus bradycardia, likely medication induced Chronic diastolic heart failure, LVEF 65-70% RVSP 40mmHg HTN emergency- not POA Paraplegia Class I obesity UTI, chronic- POA Chronic cystitis Operations\\Procedures: None Consultants: Tool Repairer Dr. Coe, Agustín Bone Glue Maker Dr. Wilson, BV Complications: None Condition on DC: Stable New Medications: Carvedilol (Carvedilol) 3.125 Mg Tablet 1 TAB PO Q12H for 30 Days, #60 TAB 0 Refills Hydralazine Hcl* (Apresoline*) 25 Mg Tablet 100 MG PO Q8H for 30 Days, #90 TAB Isosorbide Dinitrate* (Isordil*) 30 Mg Tablet 60 MG PO Q8H for 30 Days, #180 TAB Prazosin Hcl (Prazosin Hcl) 1 Mg Capsule 1 MG PO TID for 30 Days, #90 CAP Continued Medications: Amlodipine Besylate (Amlodipine Besylate) 10 Mg Tablet 1 TAB PO HS Apixaban (Eliquis) 2.5 Mg Tablet 1 TAB PO DAILY for 30 Days, #60 TAB 0 Refills Ascorbic Acid* (Vitamin C*) 500 Mg Tablet 1 TAB PO BID, TAB Aspirin (Aspir 81) 81 Mg Tablet.dr 1 TAB PO DAILY for 30 Days, #30 TAB Atorvastatin Calcium* (Lipitor*) 80 Mg Tablet 1 TABLET PO HS, TABLET D-Mannose (Azo D-Mannose) 500 Mg Capsule 500 MG PO DAILY Ezetimibe (Zetia) 10 Mg Tablet 1 TAB PO DAILY for 30 Days, #30 TAB 0 Refills Ferrous Sulfate (Iron) 325 Mg (65 Mg Iron) Tablet 65 TAB PO BID for 30 Days, #30 TAB 0 Refills Furosemide (Furosemide) 40 Mg Tablet 1 TAB PO BID Ketorolac Tromethamine (Ketorolac Tromethamine) 0.5 % Drops 1 DROP EACHEYE TID, #5 ML 0 Refills Methenamine Hippurate (Methenamine Hippurate) 1 Gram Tablet 1 TAB PO Q12H for 30 Days, #60 TAB 0 Refills Multivitamin (Multi Vitamin Daily) 1 Each Tablet 1 TAB PO DAILY for 30 Days, #30 TAB 0 Refills Becker-3/Dha/Epa/Fish Oil (Fish Oil 1,200 mg Softgel) 1,200 Mg (144 Mg-216 Mg) Capsule 1 CAP PO DAILY Omeprazole (Omeprazole) 20 Mg Capsule.dr 1 CAP PO BID Prasugrel Hydrochloride (Effient) 10 Mg Tablet 1 TAB PO DAILY for 30 Days, #30 TAB 0 Refills Prednisolone Acetate/Pf (Prednisolone Acet 1% Eye Drop) 1 % Drops.susp 1 DROP EACHEYE TID for 30 Days, #5 ML 0 Refills Travoprost (Travoprost) 0.004 % Drops 1 DROP EACHEYE TID Discontinued Medications: Carvedilol (Carvedilol) 12.5 Mg Tablet 6.25 TAB PO Q12H for 30 Days, #60 TAB 0 Refills Hydralazine Hcl* (Apresoline*) 25 Mg Tablet 1 TAB PO TID Isosorbide Mononitrate (Isosorbide Mononitrate ER) 120 Mg Tab.er.24h 1 TAB PO DAILY Sacubitril/Valsartan (Entresto 24 mg-26 mg Tablet) 24 Mg-26 Mg Tablet 26 MG PO BID for 30 Days, #60 TAB 0 Refills Discharge Summary: History of Present Illness From H&P: "Patient is a pleasant 84-year-old morbidly obese paraplegic gentleman [facility] work [facility] about a week ago and got a phone call from the PR today stating that he needs to go to the ER immediately because he has a acute renal failure. Patient says he has a enough p.o. fluid intake. He thinks his urinary output is normal. He has had acute renal failure in the past that resolved. He does not think he has recently seen a barratte operator. He denies any other associated symptoms." Hospital Course Initial diagnostic findings were notable for abnormal renal function tests, urinalysis suggestive of nephrotic syndrome, urinalysis positive for urinary tract infection, renal ultrasound revealing bilateral cysts otherwise unremarkable. Case was consulted with barratte operator Dr. Coe and patient was treated with intravenous fluids which he responded well to. Patient developed profound elevation of hypertension and sinus bradycardia in 40s which was treated with antihypertensives. Home cardvedilol initial held and Entrestro held given acute condition. TTE shows LVEF of 65-70%, RVSP of 40 mmHg, without significant valvular heart disease. Case was discussed with his family and consumer education teacher Dr. Wilson who recommended dose adjustment of carvedilol. Patient did not experience further complications throughout the entire hospital stay and remained clinically and hemodynamically stable. Patient was seen and examined on the day of discharge. On day of discharge, vss and labs notable for improving acute kidney injury. All labs, diagnostic workups, discharge plan discussed with patient in details during visit before discharge. All questions and concerns answered to the best of my professional knowledge. Patient is cleared for discharge from Nephrology standpoint by Dr. Coe. Patient is to be discharged with HH and to follow-up with PCP, Dr. Coe, family and consumer education teacher Dr. Wilson in 1- 2 weeks. Physical Exam General: Paraplegic, A&Ox 3, NAD HEENT: Normocephalic, PERRLA Neck: Supple, trachea midline, no JVD Chest: Clear to auscultation bilaterally Cardiovascular: RRR, S1&S2 GI: Soft and nontender Extremities: No cyanosis/clubbing/or edema BIOLOGY RESEARCH ASSISTANT: CN II-XII intact, no focal deficits Musculoskeletal: Paraplegic, flaccid b/l lower extremities Skin: Warm and intact *Problems/Diagnosis: (1) Acute on chronic renal failure Status: Acute Total Time Spent on D/C: > 30 Minutes Date of Service: May 24, 2025 Billing Provider: LOLI CASAS Common Visit Codes: [id number] DISCH DAY >30min LOLI CASAS May 24, 2025 11:49
--- NOTE | 2025-05-24 11:57 | PROGRESS NOTE ---
Progress Note Cardiology Providers to CC ~ Subjective Subjective Patient seen and examined yesterday and today. Patient's at bedside. Patient is being discharged today by PIPE [employer]GAN INSTALLER. Discussed with her discharge medications related to heart in view of his HERMINIO on CKD Objective Result Diagram: 05/24/2560905/24/25609 Objective General: Normal body habitus, no acute distress, HEENT: Sclerae clear, PERRL, gums without lesions or bleeding, oropharynx clear without erythema or exudate. Neck: Supple without enlargement of the thyroid, or lymphadenopathy, Chest: Normal size and shape, no tenderness, nonlabored breathing, Breath sounds diminished bibasilar Heart: Regular in rate and rhythm, S1 and S2 normal, no S3-S4 or murmurs. Abdomen: Soft, nontender, no organomegaly, bowel sounds present. COMMUNICATION SPEC: Paraplegia Extremities: Trace edema Problem\Assessment\Plan Additional Plan 1. 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 His Entresto was discontinued. His carvedilol was reduced because of bradycardia. BUN of 50 creatinine of 2.37 on 05/24/2025 five Patient to follow up with process control technician. 2. Patient with coronary artery disease, CABG x 1 with CASTANON to LAD with stenting of the circumflex and CASTANON to LAD, now presenting with exertional fatigue, chest pain, had inferolateral reversible ischemia with prior myocardial perfusion scan and now with non-Q myocardial infarction. Patient underwent coronary angiography on 11/21/2024. It showed LV ejection fraction of 55%. * LVEDP of 7 mmHg, with no significant gradient across the aortic valve. * Left main normal. Proximal LAD 40-50% narrowing. * there was competitive flow from CASTANON to LAD. * CASTANON to LAD is patent. Stent in the CASTANON and LAD junction is patent. * Circumflex stent patent. * 40% narrowing in the OM. * Dominant RCA with ostial proximal 80% plus narrowing, successfully angioplastied and stented with 3/22 mm Resolute [place] stent, postdilated to 3.5 mm vessel with JAH III flow. The patient tolerated the procedure with no complications. Currently stable continue medical therapy. Continue aspirin prasugrel and statins and beta blockers. 3. * Hypertension, hyperlipidemia. Counseled on coronary risk factor modification. [place] DC by hospitalist. Amlodipine 10 mg p.o. q.day added. Hydralazine increased to 100 mg p.o. t.i.d.. 4. Mild bradycardia: Carvedilol reduced to 3.125 mg p.o. b.i.d., hold for heart rate less than 50 5. Mild aortic stenosis: 4. * Peripheral vascular disease : bilateral iliac arteries, now both of them have been occluded. and the patient is paraplegic. 6. * Other comorbidities include gastroesophageal reflux disease, psoriasis, HERMINIO on chronic kidney disease and anemia with hemoglobin 8.7 on 05/24/2025, on iron therapy.. BALTAZAR MYERS MD May 24, 2025 11:57
[2025-05-24 14:26] LABS: ATYPICAL PANCA <1:20 titer (Neg:<1:20); CYTOPLASMIC (C-ANCA) <1:20 titer (Neg:<1:20); PERINUCLEAR (P-ANCA) <1:20 titer (Neg:<1:20)
--- NOTE | 2025-05-25 00:33 | CONSULTATION ---
DATE OF CONSULTATION: 05/23/2025 DICTATING PHYSICIAN: GARRETT Wilson MD CARDIOLOGY CONSULTATION IDENTIFICATION: An 84-year-old male. REASON FOR EVALUATION: : CAD, CABG, prior history of coronary stenting, CHF, CKD and hypertension. HISTORY OF PRESENT ILLNESS: The patient is an 84-year-old male with history of hypertension, hyperlipidemia, CAD, CABG, stenting, CHF, CKD and obesity. The patient was hospitalized on 05/20/2025. He came to the ER because [facility] clinic which had done his blood testing, called that because of his creatinine of 2.9 and GFR of 21, and they told him to go to the emergency room. The patient has a history of paraplegia after an injury in the and is wheelchair bound. He has a history of CAD, status post CABG to CASTANON to LAD on 03/16/2017 at [place], [place], Dr. Mckeon. The patient had multiple previous episodes of stenting. Also has peripheral vascular disease. The patient had coronary angiography in 2018. At that time, he was found to have bilateral occluded femoral arteries. Left radial approach was tried. He had angiography and EF was normal. EDP of 19 mmHg. LAD was 100% occluded. Circumflex 80% narrowing; stented with 2.75 x 14 Resolute [place] stent postdilated to 3.2 mm. RCA 20-30% narrowing. CASTANON to LAD has [id number] anastomosed narrowing. Subsequently, he had an evaluation at [facility], underwent CASTANON to LAD stenting by Dr. Gonzalez and CASTANON to LAD was stented at that time. At that time, he had both iliac arteries that are occluded. He did not have any access from the lower extremities. His angiography on 11/21/2024, revealed EF of 55%, LVEDP of 7 mmHg with no significant gradient across the aortic valve. Proximal LAD 40-50% narrowing. LAD and RCA both are occluded. CASTANON to LAD was patent. Stent to the CASTANON to LAD junction of the patient was patent. Circumflex stent was patent. 40% narrowing in the OM. Dominant RCA with RCA 80% narrowing was successfully angioplastied and stented with 3/22 Resolute [place] postdilated to 3.5 mm with good flow. The patient tolerated the procedure with no problems. The patient's echocardiogram showed ejection fraction of 65% and mild aortic stenosis. He was managed medically and generally, the patient is wheelchair bound. He does exercise with upper limbs. His takes care of him and the patient is and lives with his , and he does go to [facility] in [place]. The patient sees Dr. Mathews. PAST MEDICAL HISTORY: Significant for: * Hypertension. * Hyperlipidemia. * Peripheral vascular disease. * CVA. * History of bradycardia. * Mild mitral stenosis. * CAD, CABG, subsequent stenting. PAST SURGICAL HISTORY: Back surgery in 1963, cataract surgery in 2006, gallbladder surgery in 2009, CABG 2016, and colostomy 2016. FAMILY HISTORY: Father with heart disease. Mother with heart disease. SOCIAL HISTORY: The patient quit smoking at age 32. No history of alcohol. ALLERGIES: No known drug allergies. MEDICATIONS: Medications at home include aspirin 81 mg p.o. daily, prasugrel 20 mg p.o. daily, Eliquis 2.5 mg p.o. b.i.d., carvedilol 12.5 mg p.o. b.i.d., Entresto 24/26 p.o. b.i.d., amlodipine 10 mg p.o. daily, hydralazine 25 mg twice a day, Lasix 40 mg p.o. b.i.d., atorvastatin 80 mg p.o. bedtime, Zetia 10 mg p.o. daily, fish oil, omeprazole, ascorbic acid, with iron, methenamine hippurate for UTI prophylaxis and isosorbide mononitrate 120 mg p.o. daily. REVIEW OF SYSTEMS: HEENT: Wears reading glasses. No hearing impairment RESPIRATORY: Exertional shortness of breath. MUSCULOSKELETAL: Occasional arthralgia. CENTRAL NERVOUS SYSTEM: No stroke, TIA or seizures. PSYCHIATRIC: No anxiety or depression. SKIN: None. ENDOCRINE: None. PHYSICAL EXAMINATION: GENERAL: The patient is conscious, alert, oriented and comfortable at rest. HEENT: Pupils equal and reactive. Oral mucosa moist. VITAL SIGNS: Temperature 97.3, pulse 61, blood pressure 147/63. NECK: No JVD. Carotids equally well felt. CARDIAC: Regular rate and rhythm. S1 and S2 normal. No S3, S4, or murmur. LUNGS: Decreased breath sounds bilaterally. ABDOMEN: Soft, bowel sounds present. EXTREMITIES: Trace edema. LABORATORY DATA: Labs on 05/23/2025, WBC 6.2, hemoglobin 9.4, hematocrit 29, blood glucose 170. Sodium 138, potassium 4.4, chloride 108, carbon dioxide 22, BUN 47, and creatinine 2.5. Echocardiogram, EF normal at 65%. IMPRESSION AND PLAN: Number * An 84-year-old male with AKA and CKD, being managed by the Nephrology. They are holding his carvedilol because of bradycardia and Entresto because of his CKD management through Nephrology. 2. * CAD status post CABG, CASTANON to LAD, subsequent stenting. Continue aspirin and prasugrel and to lower the tolerated dose of carvedilol and continue nitrates. 3. Hypertension and hyperlipidemia. Continue risk factor modification. Noted changes in antihypertensive medication because of CKD. His Entresto was discontinued By PMD hospitalist,. Coreg reduced to 3.125 p.o. b.i.d. because of bradycardia. Patient is on amlodipine 10 mg p.o. q.day, hydralazine increased to 100 mg p.o. t.i.d.. Continue Imdur 4. * Diastolic heart failure. Titrate diuretics is required. * Mild valvular heart disease. Continue to follow. The patient has mild MR and mild aortic stenosis. 5. * History of CVA and history of peripheral arterial disease, mild obesity and CKD. GARRETT Wilson MD TID: [id number] RECEIPT: [id number] YENI/INOCENCIA/BONNIE [facility]
[2025-05-26] MEDS ORDERED: SACU1TAB PO (05:09)
[2025-05-27 11:17] LABS: A/G RATIO 0.9 (0.7-1.7); BETA GLOBULIN 1.0 g/dL (0.7-1.3); GLOBULIN, TOTAL 3.1 g/dL (2.2-3.9); M-SPIKE Not Observed g/dL (Not Observed)
== END 2025-05-24 12:07 | disposition home health service (06) | DRG 640 ==
LOC: ER 09:03 → ED HOLD 10:39 → ORTHO 4S 12:31 → PCU 3S 05-22 22:50
PROVIDERS: ADMIT Internal Medicine; ATTEND Internal Medicine
DX: E86.0 Dehydration (principal); N17.0 Acute kidney failure with tubular necrosis; G82.20 Paraplegia, unspecified; I50.32 Chronic diastolic (congestive) heart failure; I13.0 Hypertensive heart and chronic kidney disease with heart failure and stage 1 through stage 4 chronic kidney disease, or unspecified chronic kidney disease; I16.1 Hypertensive emergency; N18.32 Chronic kidney disease, stage 3b; E66.01 Morbid (severe) obesity due to excess calories; D64.9 Anemia, unspecified; N30.20 Other chronic cystitis without hematuria; I25.10 Atherosclerotic heart disease of native coronary artery without angina pectoris; E78.00 Pure hypercholesterolemia, unspecified; R00.1 Bradycardia, unspecified; T50.995A Adverse effect of other drugs, medicaments and biological substances, initial encounter; Y92.89 Other specified places as the place of occurrence of the external cause; I73.9 Peripheral vascular disease, unspecified; Z86.73 Personal history of transient ischemic attack (TIA), and cerebral infarction without residual deficits; Z79.01 Long term (current) use of anticoagulants; Z79.899 Other long term (current) drug therapy; Z88.2 Allergy status to sulfonamides; Z95.1 Presence of aortocoronary bypass graft; Z87.891 Personal history of nicotine dependence; Z68.32 Body mass index [BMI] 32.0-32.9, adult; Z93.3 Colostomy status; Z95.5 Presence of coronary angioplasty implant and graft; Z99.3 Dependence on wheelchair; Z82.3 Family history of stroke
CPT/HCPCS: 36415; 76770; 80053; 81001; 82570; 82728; 82945; 83036; 83540; 83615; 83690; 83735; 83880; 83970; 84133; 84155; 84156; 84165; 84300; 84439; 84443; 84466; 84484; 85025; 86038; 86160; 86256; 87077; 87081; 87088; 87186; 87340; 93005; 93306; 99285; A6196; A6223; A6250; A6253; A6446; A6449; G0378; J0360; J0696; J1644; J2405; J3490; J7040; J7042; J7070; J7120